=== PATIENT | female | born 1955 | race Caucasian/White ===

== ENCOUNTER 2018-05-30 15:39 | Inpatient (IN) ==
[2018-05-30] MEDS ORDERED: HYDROmorphone 2 MG/ML VIAL IV PRN ×2 (15:54→17:33)
--- NOTE | 2018-05-30 16:28 | XRay Report ---
HISTORY: Preop for hip fracture FINDINGS: The lungs are clear. The heart size and pulmonary vasculature are normal. The mediastinum, familia and pleura are normal. There is a loop of colon interposed between the diaphragm and right lobe of liver. This is an incidental finding. IMPRESSION: Normal chest Interpreted and Authenticated by: Nam Wilson 05/30/18
--- NOTE | 2018-05-30 17:26 | Internal Med History&Physical ---
Medical - H&P: HPI Patient information: Note initiated : 05/30/18 at 5:19 pm Service Date, if different from initiated Date: [] Patient: Hallie Krishnamurthy a 63 y/o F admitted on for Hip fracture. Chief Complaint: [] History of present illness: Ms. Krishnamurthy is a 63 year old F with h/o parkinsons plus syndrome presents to the ER today from outside facility for evaluation of hip fracture The patient fell down on monday, mechanical fall, no head injury reported. The patient usually ambulates with support, and was able to ambulate after fall, thinks she knew she had something broken but did not go to hospital, thought it would get better. The pain progressively got worse over the next 2 days and the patient eventually decided to go to the ER The patient denies any other complaints, her main issue is poor mobility with parkinsons plus syndrome, she needs help with basic care. Very poor functional status. She denies any h/o DM, CVA, TIA, CAD, CHF, CKD or DM, She lives with a partner who helps her with ADL, pt parents were in the ER with her. In the ER the patient was hemodynamically stable, CXR is negative. Labs unremarkable ECG normal sinus, poor voltage, no previous ekg to compare I reviewed echo done in the past 2014 which was normal. She was also evaluated with Carotid Doppler/ lower extremity Doppler, which showed mild atherosclerotic disease [id number] All systems: reviewed and no additional remarkable complaints except as stated ( as per HPI rest negative.) Medical - H&P: PMH Medical history: Parkinson's plus with cortical basilar degeneration; advancing -causing blurry vision, rem sleep behavior disorder -F/B Dr. Sanchez, dx 2016 -[facility], Dr. He -Dr. Dubois, on clonipine for this Chronic leg and feet pain Venous insufficiency Fibromylagia OA, generalized Breast cancer - dx 2007, treated with surgery Chronic cough - allergic rhinnitis, asthma r/o by G[place]is, laryngospasms GERD HTN Pituitary adenoma HLD - intolerant of statins colon polps - q 5 years with [facility] chronic low back pain, spinal stenosis Surgical history: CARMELO with BSO - uterine fibroids Cholecystectomy Left masectomy 2007 CTS bilateral Bilateral shoulders scoped Left knee replacement Right knee scopes x 7 to 8 Left nerve entrapment, with relocaton of the nerve Tonsillectomy Family history: reviewed and not pertinent Social history: Ex smoker, no etoh, or recreational drugs poor functional status, lives with partner Medical - H&P: Meds Home Medications Medication Instructions Recorded Confirmed Type Albuterol Sulfate [Ventolin] 1 puff INH Q4HP PRN 05/30/18 05/30/18 History Aspirin [Lucinda Chewable Aspirin] 81 mg PO DAILY 05/30/18 05/30/18 History Bisacodyl [Gentle Laxative] 5 mg PO DAILY 05/30/18 05/30/18 History Docusate Sodium [Colace] 100 mg PO DAILY 05/30/18 05/30/18 History Etodolac [Lodine] 400 mg PO BID 05/30/18 05/30/18 History Furosemide [Lasix] 40 mg PO DAILY 05/30/18 05/30/18 History Gabapentin 600 mg PO DAILY 05/30/18 05/30/18 History Loratadine/Pseudoephedrine 1 each PO DAILY 05/30/18 05/30/18 History [Claritin-D 12 Hour Tablet] Multivitamin [One Daily] 1 each PO DAILY 05/30/18 05/30/18 History Nystatin Crm 1 dose TOPICAL TID 05/30/18 05/30/18 History Omeprazole [PriLOSEC] 20 mg PO DAILY 05/30/18 05/30/18 History Ondansetron HCl [Zofran ODT] 4 mg SL Q8HP PRN 05/30/18 05/30/18 History Venlafaxine HCl [Effexor Xr] 37.5 mg PO DAILY 05/30/18 05/30/18 History Vit A,C & E/Lutein/Minerals 1 tab PO DAILY 05/30/18 05/30/18 History [Ocuvite] tiZANidine HCL [Zanaflex] 4 mg PO HS 05/30/18 05/30/18 History Allergies Allergy/AdvReac Type Severity Reaction Status Date / Time Penicillins Allergy Intermediate Hives Verified 05/30/18 15:40 cefazolin [CEFAZOLIN] AdvReac Intermediate Nausea/Vomi Verified 05/30/18 15:40 ting ADHESIVE TAPE Allergy Unknown Rash Uncoded 02/06/15 03:30 Medical - H&P: Exam - Constitutional Vitals: Temp Pulse Resp BP Pulse Ox 99.1 F H 94 H 16 155/77 95 05/30/18 15:41 05/30/18 15:41 05/30/18 15:41 05/30/18 15:41 05/30/18 15:41 Exam: GENERAL: The patient is a well-developed, well-nourished in no apparent distress. Is alert and oriented x3. VITAL SIGNS: Reviewed and as noted elsewhere. HEENT: Head is normocephalic and atraumatic. Extraocular muscles are intact. Pupils are equal, round, and reactive to light. Nares appeared normal. Mouth appears any without lesions. Mucous membranes are dry NECK: Normal to inspection, No lymphadenopathy or thyromegaly. LUNGS: Air entry equal on both sides, no wheezing, crackles or rhonchi noted. No accessory muscles of respiration HEART: Regular rate and rhythm normal, S1 and S2 heard, no Gallop, S3 or Rub Noted, No Gross murmur heard. ABDOMEN: Soft, nontender, and nondistended. Positive bowel sounds. No hepatosplenomegaly was noted. EXTREMITIES: No cyanosis, clubbing, rash, lesions or edema. NEUROLOGIC: Cranial nerves II through XII are grossly intact. Motor and Sensory System Grossly Intact, masked facies, flexed upper extremity, increased tone in all joints. mild parkinsonian tremor noted. PSYCHIATRIC: Normal affect, Normal Mood. Appropriate Behavior. SKIN: No ulceration or wounds noted, No jaundice, No rash noted. Medical - H&P: Reslt - Labs Labs: labs reviewed WBC 7.3 Hb 13.4 Plat 167 Na 141, K 3.8, BIcarb 26, Creat 0.79, glucose 97 ua mild leuk esterase positive, 5-10 wbc rest neg Medical - H&P: A/P - Narrative A/P Narrative: A/P Hip fracture- Management per ortho, anticipate surgery in AM. Pre op risk assessment- Patient has RCRI of 0, moderate risk from cardiovascular stand point (age/ poor functional status) , but high risk perioperatively given age, advanced neurological disease as well as high risk for perioperative delirium. This was reviewed with the patient and family. No reversible factors noted. Parkinson disease, plus- Continue Levodopa carbidopa in the alan op period Fibromyalgia- continue Effexor HTN/HLD- Continue home medications once verified DVT hep sq Diet regular OT/PT/ST
[2018-05-30] MEDS ORDERED: oxyCODONE HCL 5 MG TABLET PO PRN (17:33)
[2018-05-30] MEDS ORDERED: ONDANSETRON 4 MG/2 ML VIAL IV PRN (17:33)
[2018-05-30] MEDS ORDERED: ACETAMINOPHEN 325 MG TABLET PO PRN (17:33)
--- NOTE | 2018-05-30 17:34 | Emergency Department Note ---
Lower Extremity Injury HPI - General Chief Complaint: Extremity Injury, Lower Stated Complaint: Hip fracture Time Seen by Provider: 05/30/18 15:43 Source: EMS Mode of arrival: EMS - History of Present Illness HPI Narrative: This patient fell on Monday and sustained a fracture to her left hip which was impacted. She was able to walk on it slightly for a day or so but it has become more painful and she went to the ER and [facility] and had x-rays that showed an impacted fracture. Patient is reasonably comfortable with this time. She has had some lab work done and [facility]. Dr. Valentine was consulted and Dr. Shrestha. - Related Data Home Medications Medication Instructions Recorded Confirmed Albuterol Sulfate [Ventolin] 1 puff INH Q4HP PRN 05/30/18 05/30/18 Aspirin [Lucinda Chewable Aspirin] 81 mg PO DAILY 05/30/18 05/30/18 Bisacodyl [Gentle Laxative] 5 mg PO DAILY 05/30/18 05/30/18 Docusate Sodium [Colace] 100 mg PO DAILY 05/30/18 05/30/18 Etodolac [Lodine] 400 mg PO BID 05/30/18 05/30/18 Furosemide [Lasix] 40 mg PO DAILY 05/30/18 05/30/18 Gabapentin 600 mg PO DAILY 05/30/18 05/30/18 Loratadine/Pseudoephedrine 1 each PO DAILY 05/30/18 05/30/18 [Claritin-D 12 Hour Tablet] Multivitamin [One Daily] 1 each PO DAILY 05/30/18 05/30/18 Nystatin Crm 1 dose TOPICAL TID 05/30/18 05/30/18 Omeprazole [PriLOSEC] 20 mg PO DAILY 05/30/18 05/30/18 Ondansetron HCl [Zofran ODT] 4 mg SL Q8HP PRN 05/30/18 05/30/18 Venlafaxine HCl [Effexor Xr] 37.5 mg PO DAILY 05/30/18 05/30/18 Vit A,C & E/Lutein/Minerals 1 tab PO DAILY 05/30/18 05/30/18 [Ocuvite] tiZANidine HCL [Zanaflex] 4 mg PO HS 05/30/18 05/30/18 Allergies Allergy/AdvReac Type Severity Reaction Status Date / Time Penicillins Allergy Intermediate Hives Verified 05/30/18 15:40 cefazolin [CEFAZOLIN] AdvReac Intermediate Nausea/Vomi Verified 05/30/18 15:40 ting ADHESIVE TAPE Allergy Unknown Rash Uncoded 02/06/15 03:30 Review of Systems All systems ED: reviewed and negative except as stated. Past Medical History - Past Medical History [facility] Narrative: This patient has some sort of a cortical cerebral degeneration syndrome. - Social History smoking status: Former smoker Physical Exam Limitations: no limitations General appearance: alert Head: atraumatic Eye: Present: normal appearance ENT: normal exam Neck: Present: normal inspection Chest: Present: normal inspection Respiratory: Present: normal lung sounds bilaterally Cardiovascular: Present: regular rate, normal rhythm, normal heart sounds Abdominal: Present: soft. Absent: distention, tenderness Neurological: Present: alert Psychiatric: Present: normal affect Skin: Present: warm, dry, intact Course Vital Signs Temperature 99.1 F H 05/30/18 15:41 Pulse Rate 94 H 05/30/18 15:41 Respiratory Rate 16 05/30/18 15:41 Blood Pressure 155/77 05/30/18 15:41 Pulse Oximetry (%) 95 05/30/18 15:41 Temperature 99.1 F H 05/30/18 15:41 Pulse Rate 92 H 05/30/18 17:20 Respiratory Rate 16 05/30/18 15:41 Blood Pressure 163/83 05/30/18 17:01 Pulse Oximetry (%) 96 05/30/18 17:20 Extremity Injury, Lower - Medical Records Medical records reviewed: Yes I reviewed the patient's medical records. Disposition Pt seen by PURCHASING EXPEDITOR/PA only: No Clinical Impression: Fracture of hip Disposition: Xfer As Inpt ([facility]) Condition: Good Referrals: Fallon Benavidez MD [Primary Care Provider] - Time of Disposition: 17:34
[2018-05-30] MEDS: DEXTROSE 5%-1/2NS 1,000 ML IV SCH (18:00)
[2018-05-30] MEDS: HEPARIN 5,000 UNIT/ML VIAL SQ SCH (20:09)
[2018-05-30] MEDS: CARBIDOPA/LEVODOPA 25/100 TABLET PO SCH ×2 (20:09→20:13)
[2018-05-30] MEDS: 0.9 % SODIUM CHLORIDE 10 ML SYRINGE IV SCH (20:11)
[2018-05-30] MEDS: IPRATROPIUM/ALBUTEROL 3 ML AMPUL.NEB NEB SCH (20:15)
[2018-05-30] MEDS ORDERED: SENNOSIDES 1 TABLET PO SCH (21:00)
[2018-05-30] MEDS ORDERED: TIZANIDINE HCL 4 MG PO SCH (21:00)
[2018-05-30] MEDS ORDERED: tiZANidine 4 MG TABLET PO SCH (21:00)
[2018-05-30] MEDS ORDERED: CYCLOBENZAPRINE 10 MG TABLET PO ONE (21:27)
[2018-05-30] MEDS: cefTRIAXone 1 GM VIAL IV SCH (22:43)
[2018-05-30] MEDS: VENLAFAXINE 37.5 MG TAB.ER.24H PO SCH (23:07)
[2018-05-30] MEDS ORDERED: GABAPENTIN 300 MG CAPSULE ONE (23:08)
[2018-05-31] MEDS: IPRATROPIUM/ALBUTEROL 3 ML AMPUL.NEB NEB SCH ×4 (01:19→19:10)
[2018-05-31 05:04] LABS: Appearance,Urine CLEAR; Bilirubin,Urine NEG (NEG); Color,Urine YELLOW; Glucose,Urine (UA) NEGATIVE (NEG); Leukocyte Esterase,Urine NEG /uL (NEG); Protein,Urine NEG (NEG); Urine Blood NEG mg/dL (<0.03)
[2018-05-31] MEDS: 0.9 % SODIUM CHLORIDE 10 ML SYRINGE IV SCH ×3 (05:04→20:48)
[2018-05-31] MEDS: DEXTROSE 5%-1/2NS 1,000 ML IV SCH (06:21)
--- NOTE | 2018-05-31 06:43 | Orthopedic Consult Note ---
History of Present Illness - [facility] Patient information: Note initiated : 05/31/18 at 6:37 am Service Date, if different from initiated Date: [] Patient: Hallie Krishnamurthy 63 y/o F admitted on 05/30/18 for Hip fracture. Chief Complaint: [left hip fracture] Consult date: 05/31/18 Consult reason: fracture History of present illness: Patient presented to [facility] yesterday where x-rays revealed a left hip fracture. She was transferred to [facility] for further care and evaluation. The patient was admitted by the hospitalist yesterday for overall medical management. I spoke with the patient and her partner this morning at bedside. She states that on Monday she fell and landed on that hip and then proceeded to walk on it for two days. She has a past medical history significant for cortical basilar degeneration, Parkinsons, breast cancer, GERD, HTN, Pituitary adenoma, colon polyps, spinal stenosis. She routinely ambulates with assistance or assistive device. Both parties deny head trauma at the time of the fall. This morning she reports moderate pain in the left hip. She denies chest pain, SOB, numbness, tingling, calf pain. She also denies PMH of CVA, TIA , RI, DM, or CKD. Cardiovascular health was examined by Dr. Shrestha at admission. She has had multiple surgeries in the past with no anesthetic complications. She's a former tobacco user and denies ETOH or recreational drug use. She was given a dose of Heparin last night for some reason but does not routinely take blood thinners. Review of Systems All systems PM: reviewed and no additional remarkable complaints except as stated Musculoskeletal: abnormal gait, back pain, deformity, limited range of motion, neck pain Medications and Allergies Home Medications Medication Instructions Recorded Confirmed Type Albuterol Sulfate [Ventolin] 1 puff INH Q4HP PRN 05/30/18 05/30/18 History Aspirin [Lucinda Chewable Aspirin] 81 mg PO DAILY 05/30/18 05/30/18 History Bisacodyl [Gentle Laxative] 5 mg PO DAILY 05/30/18 05/30/18 History Docusate Sodium [Colace] 100 mg PO DAILY 05/30/18 05/30/18 History Etodolac [Lodine] 400 mg PO BID 05/30/18 05/30/18 History Furosemide [Lasix] 40 mg PO DAILY 05/30/18 05/30/18 History Gabapentin 600 mg PO DAILY 05/30/18 05/30/18 History Loratadine/Pseudoephedrine 1 each PO DAILY 05/30/18 05/30/18 History [Claritin-D 12 Hour Tablet] Multivitamin [One Daily] 1 each PO DAILY 05/30/18 05/30/18 History Nystatin Crm 1 dose TOPICAL TID 05/30/18 05/30/18 History Omeprazole [PriLOSEC] 20 mg PO DAILY 05/30/18 05/30/18 History Venlafaxine HCl [Effexor Xr] 37.5 mg PO DAILY 05/30/18 05/30/18 History Vit A,C & E/Lutein/Minerals 1 tab PO DAILY 05/30/18 05/30/18 History [Ocuvite] tiZANidine HCL [Zanaflex] 4 mg PO HS 05/30/18 05/30/18 History Allergies Allergy/AdvReac Type Severity Reaction Status Date / Time Penicillins Allergy Intermediate Hives Verified 05/30/18 15:40 cefazolin [CEFAZOLIN] AdvReac Severe Nausea/Vomi Verified 05/30/18 23:33 ting ADHESIVE TAPE Allergy Severe Rash Uncoded 05/30/18 23:33 Physical Examination - Hip left Gait: other (non weight bearing) Tenderness with palpation: lateral, greater trochanter Pain with motion: internal rotation and hip flexion, internal rotation and hip extension, external rotation and hip flexion, external rotation and hip extension, other Assessment and Plan (1) Closed left hip fracture Mildly displaced fracture of left femoral neck: -after speaking to patient and partner regarding diagnosis and reviewing the images with Dr. Hansen, the recommended course of action is a left emma hip arthroplasty for optimal orthopedic management. Hip pinning is an option however the head is displaced and the likelihood of femoral head necrosis is a great risk as well as the patient's unsteady gait. We discussed the procedure at length including the risks and benefits associated with surgery including but not limited to the risks of anesthesia, the risk of infection, altered gait , pain. The patient understands these risks and wishes to proceed with surgery which is scheduled for this morning. -pain control -NPO Status: Acute Exam Vital signs: Temp Pulse Resp BP Pulse Ox 99.3 F H 78 20 122/72 90 09/27/18 03:30 05/31/18 03:30 05/31/18 03:30 05/31/18 03:30 05/31/18 03:30 Constitutional: well developed, well nourished, no acute distress Head: normocephalic, atraumatic Neck: trachea midline, nuchal rigidity, other (unable to fully extend neck) Respiratory: no intercostal retractions or use of accessory muscles, clear to auscultation bilaterally Cardiovascular: regular rate & rhythm with no murmurs, rubs or gallops, no thrill or palpable murmurs Neurologic: other (diffuse muscular weakness, slow gait and slow speech) Psychiatric: oriented to person, place and time Additional findings: DP/PT pulses 2+ bilaterally. LLE compartments soft and nontender. Capillary refill < 3 seconds
[2018-05-31 07:05] LABS: Basophils # (Auto) 0 K/mcL (0.0-0.3); Basophils % (Auto) 0.3 % (0.0-2.0); Eosinophils # (Auto) 0.2 K/mcL (0.0-0.7); Eosinophils % (Auto) 2.3 % (0.0-7.0); Lymphocytes % (Auto) 28.7 % (15.5-49.0); Mean Cell Volume 91.5 fL (80.0-100.0); Mean Corpuscular HGB Conc 34.2 g/dL (31.0-36.0); Mean Corpuscular Hemoglobin 31.3 pg (26.0-34.0); Monocytes # (Auto) 0.7 K/mcL (0.1-0.9); Monocytes % (Auto) 10.7 % (1.0-12.0); Platelet Count 143 K/mcL (140-440); RBC 3.94 M/mcL (4.00-5.20); Red Cell Distribution Width 11.9 % (11.5-14.5)
[2018-05-31] MEDS ORDERED: OMEPRAZOLE 20 MG CAPSULE PO SCH (07:30)
[2018-05-31 07:31] LABS: ALT/SGPT 8 U/l (0-40); Albumin 3.4 gm/dL (3.2-5.2); Albumin/Globulin Ratio 1.4 (1.0-2.3); Alkaline Phosphatase 55 U/L (39-117); Bilirubin,Direct < 0.2 mg/dL (0.0-0.3); Blood Urea Nitrogen 10 mg/dl (8-23); Gamma Glutamyl Transpeptidase 11 U/L (5-36); Uric Acid 2.1 mg/dL (2.5-8.0)
--- NOTE | 2018-05-31 07:33 | Consultation ---
DATE OF CONSULTATION: 05/30/2018 HISTORY OF PRESENT ILLNESS: This is a very pleasant 63-year-old who is alert and cooperative, was seen in [facility] and diagnosed with a femoral neck fracture of the left hip. She does have some Parkinson's or advanced Parkinson's type symptoms and she still ambulates but short distance. Mentally she is alert. She asked lots of questions. She does note she had a fall. She broke this 2 days ago and actually walked on the hip a little bit. These x-rays confirmed mild to moderate displacement of the femoral neck. The patient otherwise has been progressively getting weaker and worse because of the Parkinson's, but she is still doing quite well. PAST MEDICAL HISTORY: Parkinson's like syndrome or neurologic syndrome that has limited her ability to get around. MEDICATIONS: I did not have or review with her. PHYSICAL EXAMINATION: GENERAL: A very pleasant 63-year-old female with all signs of Parkinson's. LUNGS: She does have some slight wheezing with breathing, but no shortness of breath. She has a regular rate. ABDOMEN: Soft, nontender. EXTREMITIES: Her left leg has excellent pulses, both dorsal and plantar. She is rigid consistent with Parkinson's. She has good capillary refill, however. There is no significant rotational deformity of the left leg on inspection, no open wounds around the hip. RADIOLOGIC STUDIES: X-rays from [facility] demonstrate a femoral neck fracture with slight displacement. LABORATORY DATA: Hematocrit 40, UA fairly clean with 5-10 white blood cells that may need to be addressed. IMPRESSION: Femoral neck fracture with neurologic, or Parkinson's type symptoms. PLAN: They have requested Dr. Hansen-he has treated them in the past and I have notified Dr. Hansen of this, and he is willing to do this tomorrow. She will be made NPO at midnight. The hospitalist will be consulted for clearance. RBH:brandi Job ID: [id number] Doc ID: [id number] Kunal Yang MD
[2018-05-31] MEDS ORDERED: DOCUSATE SODIUM 100 MG CAPSULE PO SCH ×2 (09:00→21:00)
[2018-05-31] MEDS ORDERED: ASPIRIN 325 MG ENTERIC COATED TABLET PO SCH (09:00)
[2018-05-31] MEDS ORDERED: GABAPENTIN 300 MG CAPSULE PO SCH ×2 (09:00→21:00)
[2018-05-31] MEDS: VENLAFAXINE 37.5 MG TAB.ER.24H PO SCH ×2 (09:19→20:48)
[2018-05-31] MEDS: HEPARIN 5,000 UNIT/ML VIAL SQ SCH ×2 (09:19→20:46)
[2018-05-31] MEDS: CARBIDOPA/LEVODOPA 25/100 TABLET PO SCH ×2 (09:20→20:48)
[2018-05-31] MEDS: cefTRIAXone 1 GM VIAL IV SCH (09:45)
[2018-05-31] MEDS ORDERED: PROPOFOL 200 MG/20 ML VIAL IV ONE (11:00)
[2018-05-31] MEDS ORDERED: MIDAZOLAM 5 MG/5 ML VIAL IV ONE (11:00)
[2018-05-31] MEDS ORDERED: LIDOCAINE HCL/PF 100 MG/5 ML SYRINGE IV ONE (11:00)
[2018-05-31] MEDS ORDERED: ONDANSETRON 4 MG/2 ML VIAL IV ONE (11:00)
[2018-05-31] MEDS ORDERED: fentaNYL 100 MCG/2 ML VIAL IV ONE (11:00)
[2018-05-31] MEDS ORDERED: KETAMINE 100 MG/ML ML IV ONE (11:00)
[2018-05-31] MEDS ORDERED: TRANEXAMIC ACID 1,000 MG/10 ML VIAL IV ONE ×2 (11:00→12:09)
[2018-05-31] MEDS ORDERED: DEXAMETHASONE 10 MG/ML VIAL IV ONE (11:00)
[2018-05-31] MEDS ORDERED: GENTAMICIN SULFATE 800 MG/20 ML VIAL IR ONE (11:48)
[2018-05-31] MEDS ORDERED: NALOXONE HCL 0.4 MG/ML VIAL IV PRN (11:49)
[2018-05-31] MEDS ORDERED: IPRATROPIUM/ALBUTEROL 3 ML AMPUL.NEB NEB PRN (11:49)
[2018-05-31] MEDS ORDERED: ACETAMINOPHEN 1,000 MG/100 ML BOTTLE IV ONE (11:49)
[2018-05-31] MEDS ORDERED: LACTATED RINGERS 250 ML IV PRN (11:49)
[2018-05-31] MEDS ORDERED: diphenhydrAMINE 50 MG/ML VIAL IV PRN (11:49)
[2018-05-31] MEDS ORDERED: FLUMAZENIL 0.1 MG/ML ML IV PRN (11:49)
[2018-05-31] MEDS ORDERED: PROMETHAZINE 25 MG/ML VIAL IV PRN (11:49)
[2018-05-31] MEDS ORDERED: BENZOCAINE/MENTHOL 1 LOZENGE PO PRN ×3 (11:49→14:52)
[2018-05-31] MEDS ORDERED: ONDANSETRON 4 MG/2 ML VIAL IV PRN ×2 (11:49→14:52)
[2018-05-31] MEDS ORDERED: MEPERIDINE 25 MG/ML SYRINGE IV PRN (11:49)
[2018-05-31] MEDS ORDERED: fentaNYL 100 MCG/2 ML VIAL IV PRN (11:49)
[2018-05-31] MEDS ORDERED: LACTATED RINGERS 1,000 ML IV SCH (12:00)
[2018-05-31] MEDS ORDERED: ONDANSETRON ODT 4 MG TABLET SL PRN ×2 (12:09→14:52)
[2018-05-31] MEDS ORDERED: HYDROcodone/APAP 10/325MG TABLET PO PRN ×2 (12:09→14:52)
[2018-05-31] MEDS ORDERED: METHOCARBAMOL 750 MG TABLET PO PRN ×2 (12:09→14:52)
[2018-05-31] MEDS ORDERED: FLEETS ADULT ENEMA PR PRN ×2 (12:09→14:52)
[2018-05-31] MEDS ORDERED: MAGNESIUM HYDROXIDE 30 ML ORAL.SUSP PO PRN ×2 (12:09→14:52)
[2018-05-31] MEDS ORDERED: BISACODYL 10 MG SUPP.RECT PR PRN ×2 (12:09→14:52)
[2018-05-31] MEDS ORDERED: POLYETHYLENE GLYCOL 3350 17 GM PACKET PO PRN ×2 (12:09→14:52)
--- NOTE | 2018-05-31 12:09 | Brief Operative Note ---
Date of procedure: 05/31/18 Pre-op diagnosis: left hip femoral neck fracture Post-op diagnosis: same Procedure: left hip hemiarthroplasty Grafts/Implants: Yes Anesthesia: spinal Complications: none Surgeon: Liang Hansen Collision Technician: Edith Lyles Estimated blood loss (cc): 150 Specimens Removed/Pathology: none sent Condition: stable Disposition: PACU
[2018-05-31] MEDS ORDERED: 0.9 % SODIUM CHLORIDE 1,000 ML IV SCH ×2 (12:15→14:52)
--- NOTE | 2018-05-31 12:20 | Operative Note ---
DATE OF OPERATION: 05/31/2018 PREOPERATIVE DIAGNOSES: 1. Femoral neck fracture, left hip. 2. Transcervical valgus impaction. POSTOPERATIVE DIAGNOSES: 1. Femoral neck fracture, left hip. 2. Transcervical valgus impaction. PROCEDURE PERFORMED: Left hip hemiarthroplasty. SURGEON: Liang Hansen M.D. EMBLEM MAKER SURGEON: Edith Lyles PA-C. ANESTHESIA: Spinal with LMA assist. ESTIMATED BLOOD LOSS: 200 mL. COMPLICATIONS: None noted. SPECIMENS REMOVED: None. DRAINS: None. IMPLANTS: DePuy Treasure femoral stem size 7, basic pressfit; DePuy Modular [place] fractured head hip ball 45 mm diameter; DePuy Modular [place] tapered spacer +0. INDICATIONS: The patient fell and was unable to ambulate. Radiographs have confirmed a displaced femoral neck fracture. The patient was admitted to the hospital and underwent medical clearance. After a long discussion about treatment options, the patient elected to proceed with a hip hemiarthroplasty. The risks and benefits were discussed with the patient in detail including, but not limited to, the risks of anesthesia, problems with the heart or lungs related to anesthesia, infection, compromise or injury to the nerves and blood vessels, deep venous thrombosis, pulmonary embolism, pneumonia, continued pain after surgery, worsening pain or symptoms after surgery, swelling, loss of motion, instability, leg length discrepancy, and need for repeat surgery. DESCRIPTION OF PROCEDURE: The patient was seen in pre-anesthesia waiting room where all questions were answered and the correct side and site were identified and marked. The patient was then brought to the operating room and administered the anesthetic and given preoperative antibiotics. A time-out was then called. The patient was placed in the lateral decubitus position with all prominences well padded using the Sotero frame and the extremity was prepped and draped in the usual sterile fashion. A standard posterior approach was made. We dissected through the skin and subcutaneous tissue to the deep fascia. The deep fascia was split in line with the incision and a Charnley retractor was placed. We exposed, tagged, and incised the short external rotators and piriformis tendon and retracted them posteriorly to help protect the sciatic nerve which was palpated throughout the case. We then performed a T-capsulotomy and tagged the capsule edges. The hip was then dislocated and a femoral neck osteotomy was performed to the presurgical templated level, off the lesser trochanter. The head was removed and sized. The acetabulum was inspected and did not have a significant degree of osteoarthritis. All bone and fracture debris was removed. Our attention was now turned to the femur. We placed retractors for visualization, internally rotated the femur, and established intramedullary access. We incrementally broached our stem to a stable platform medial, lateral, and rotationally with the appropriate version. We then performed a calcar reaming off the broach. Trials were then placed and optimized for leg length, soft tissue tension, and stability. Best stability, length, and offset characteristics were obtained with these sizes. We closed the fascia with a combination of #2 Stratafix and #0 Vicryl. We closed the subcutaneous tissue and skin in layers out to Dermabond on the skin. A sterile pressure dressing and abduction wedge was applied. All needle and sponge counts were correct. The patient was transferred to the recovery room in stable condition. KANWAL:bella Job ID: [id number] Doc ID: [id number] Kamron Hansen MD
--- NOTE | 2018-05-31 12:56 | XRay Report ---
HISTORY: Postop hip replacement for fractured hip FINDINGS: Patient has well-positioned left hip prosthesis. There is no fracture or abnormal soft tissue calcification around the joint. There are calcified plaques in the femoral arteries. IMPRESSION: Well-positioned left hip prosthesis Interpreted and Authenticated by: Nam Wilson 05/31/18
[2018-05-31] MEDS ORDERED: DEXTROSE 5%-1/2NS 1,000 ML IV SCH (14:52)
--- NOTE | 2018-05-31 15:23 | Internal Med Progress Note ---
Medical - PN: Subj Patient information: Note initiated : 05/31/18 at 3:21 pm Service Date, if different from initiated Date: [] Patient: Hallie Krishnamurthy a 63 y/o F admitted on 05/30/18 for Hip fracture. Chief Complaint: [] Interval history: Ms. Krishnamurthy is a 63 year old F with h/o parkinsons plus syndrome presents to the ER today from outside facility for evaluation of hip fracture The patient fell down on monday, mechanical fall, no head injury reported. The patient usually ambulates with support, and was able to ambulate after fall, thinks she knew she had something broken but did not go to hospital, thought it would get better. The pain progressively got worse over the next 2 days and the patient eventually decided to go to the ER The patient denies any other complaints, her main issue is poor mobility with parkinsons plus syndrome, she needs help with basic care. Very poor functional status. She denies any h/o DM, CVA, TIA, CAD, CHF, CKD or DM, She lives with a partner who helps her with ADL, pt parents were in the ER with her. In the ER the patient was hemodynamically stable, CXR is negative. Labs unremarkable ECG normal sinus, poor voltage, no previous ekg to compare I reviewed echo done in the past 2014 which was normal. She was also evaluated with Carotid Doppler/ lower extremity Doppler, which showed mild atherosclerotic disease [id number] 9/27 Patient seen examined drowsy, post op, partner by bed side, Pertinent ROS: pt drowsy. - Constitutional Vitals: Vital Signs Temp Pulse Resp BP Pulse Ox 99.4 F H 80 20 142/63 90 05/31/18 13:26 05/31/18 13:26 05/31/18 13:26 05/31/18 13:26 05/31/18 13:26 Period Temp Pulse Resp BP Sys/Daniel Pulse Ox Last 24 Hr 98.0 F-100.5 F 78-98 - 98-163/63-85 89-98 Intake and Output 05/31/18 05/31/18 05/31/18 05:59 13:59 21:59 Intake Total 0 / 0 2900 / 2900 Output Total 600 / 600 450 / 450 Balance -600 / -600 2450 / 2450 Intake & Output: Intake & Output 09/05/31/18 05/31/18 05:59 13:59 21:59 Intake Total 0 / 0 2900 / 2900 Output Total 600 / 600 450 / 450 Balance -600 / -600 2450 / 2450 Intake: IV 1100 / 1100 Dextrose 5%-1/2Ns IV Solution 1 1000 / 1000 ,000 ml @ 75 mls/hr IV .[id number] [facility] Rx#:[id number] Oral 0 / 0 IV - Manual Only 1800 / 1800 Output: Urine Catheter Amount 600 / 600 250 / 250 Estimated Blood Loss 200 / 200 Other: Urine Appearance Clear Clear Uretheral (Kendrick) Clear Urine Color Bright Yellow Straw Uretheral (Kendrick) Dark Yellow Exam: Constitutional; Afebrile, cooperative, drowsy, not in distress. Respiratory system: Air Entry equal on both sides, No crackles or wheezing, no rhonchi. CVS- Rate rhythm regular, S1,S2 heard, no gallop, no rub. Abdomen- Soft nontender abdomen, no organomegaly, no tenderness, no guarding or rigidity, VP [employer]- AOOx1, moving all extremities, no gross focal deficit noted. Medical - PN: Obj Da - Labs CBC & Chem 7: 05/31/18 05:48 05/31/18 05:48 Labs: Abnormal Lab Results 05/31/18 05/31/18 05/31/18 05:48 05:48 03:30 RBC 3.94 L Glucose 116 H Uric Acid 2.1 L Urine Urobilinogen 2.0 A Meds: Medications Acetaminophen (Tylenol) 650 mg PO Q6HP PRN PRN Reason: PAIN/FEVER > 101 Hydrocodone Bitart/Acetaminophen ([place] 10/325mg) 0 tab PO Q4HP PRN PRN Reason: PAIN LEVEL 3-6 Albuterol/Ipratropium (Duoneb) 3 ml NEB Q6HRT [facility] Aspirin (Ecotrin) 325 mg PO DAILY [facility] Bisacodyl (Dulcolax) 10 mg [place] Q2-3DAYS PRN PRN Reason: Constipation Carbidopa/Levodopa (Sinemet 25/100) 1 tab PO BID [facility] Docusate Sodium (Colace) 100 mg PO BID [facility] Gabapentin (Neurontin) 600 mg PO HS [facility] Heparin Sodium (Porcine) (Heparin) 5,000 unit SQ Q12 [facility] Clindamycin Phosphate 600 mg/ (Dextrose) 54 mls @ 100 mls/hr IV Q8H [facility] Stop: 06/01/18 02:03 Dextrose/Sodium Chloride (Dextrose 5%-1/2ns Iv Solution) 1,000 mls @ 75 mls/hr IV .[id number] [facility] Stop: 05/31/18 20:12 Sodium Chloride (Sodium Chloride 0.9%) 1,000 mls @ 125 mls/hr IV .Q8H [facility] Magnesium Hydroxide (Milk Of Magnesia) 30 ml PO BIDP PRN PRN Reason: Constipation Methocarbamol (Robaxin) 750 mg PO Q6HP PRN PRN Reason: Muscle Spasm Morphine Sulfate (Morphine) 0 mg IV Q1HP PRN PRN Reason: PAIN LEVEL > 6 Omeprazole (Prilosec) 20 mg PO QAMAC [facility] Ondansetron HCl (Zofran) 4 mg IV Q6HP PRN PRN Reason: Nausea And Vomiting Ondansetron HCl (Zofran Odt) 4 mg SL Q4HP PRN PRN Reason: Nausea And Vomiting Polyethylene Glycol (Miralax) 17 gm PO DAILYP PRN PRN Reason: Constipation Senna (Senokot) 2 tab PO HS [facility] Sodium Biphosphate/Sodium Phosphate (Fleets Adult) 1 dose [place] Q3-4DAYS PRN PRN Reason: Constipation Sodium Chloride (Saline Flush) 10 ml IV Q8 [facility] Throat Lozenges (Cepacol) 1 lozenge PO PRN PRN PRN Reason: Sore Throat Tizanidine HCl (Zanaflex) 4 mg PO HS [facility] Venlafaxine HCl (Effexor Xr) 37.5 mg PO HS [facility] Medical - PN: A/P - Time Spent With Patient Total time spent is greater than 50% in coordination of care (as documented) at patient's floor/unit and/or counseling patient: - Narrative A/P Narrative: A/P Hip fracture- Management per ortho, s/p surgery Parkinson disease, plus- Continue Levodopa carbidopa , given her neurological status, high risk for post op delirum Fibromyalgia- continue Effexor HTN/HLD- Continue home medications once verified DVT hep sq Diet regular OT/PT/ST Medical - PN: Qual - Stroke Symptom Onset Unknown: No - VTE Deep Vein Thrombosis/Pulmonary Embolism Present on Admission: No
[2018-05-31] MEDS ORDERED: CLINDAMYCIN 600 MG in DEXTROSE 5% IN WATER 50 ML IV SCH (17:30)
[2018-05-31] MEDS: CLINDAMYCIN 600 MG in DEXTROSE 5% IN WATER 50 ML IV SCH (17:41)
[2018-05-31] MEDS: GABAPENTIN 300 MG CAPSULE PO SCH (20:46)
[2018-05-31] MEDS: DOCUSATE SODIUM 100 MG CAPSULE PO SCH (20:47)
[2018-05-31] MEDS: tiZANidine 4 MG TABLET PO SCH (20:47)
[2018-05-31] MEDS: SENNOSIDES 1 TABLET PO SCH (20:47)
[2018-05-31] MEDS ORDERED: SENNOSIDES 1 TABLET PO SCH (21:00)
[2018-05-31] MEDS ORDERED: VENLAFAXINE 37.5 MG TAB.ER.24H PO SCH (21:00)
[2018-06-01] MEDS: CLINDAMYCIN 600 MG in DEXTROSE 5% IN WATER 50 ML IV SCH (01:13)
[2018-06-01] MEDS: IPRATROPIUM/ALBUTEROL 3 ML AMPUL.NEB NEB SCH ×4 (01:14→19:49)
--- NOTE | 2018-06-01 06:43 | Orthopedic Progress Note ---
Subjective Patient information: Note initiated : 06/01/18 at 6:40 am Service Date, if different from initiated Date: [] Patient: Hallie Krishnamurthy 63 y/o F admitted on 05/30/18 for Hip fracture. Chief Complaint: [POD #1 s/p left emma hip arthroplasty Patient doing quite well this morning. Reports minimal to no pain. Denies CP, SOB, numbness, tingling, calf pain. Wanting to go to swing bed at [facility] tomorrow.] Objective Vital signs: Vital Signs Temp Pulse Pulse Pulse Resp BP BP 06/01/18 03:45 97.9 F 77 24 H 100/63 06/01/18 00:00 97.7 F 77 18 99/60 05/31/18 20:00 98.4 F 85 18 110/65 05/31/18 19:21 79 18 05/31/18 19:19 84 18 05/31/18 18:24 99.4 F H 05/31/18 15:48 76 116/70 05/31/18 15:33 73 115/71 05/31/18 15:18 78 110/69 05/31/18 15:03 76 107/68 05/31/18 14:48 76 109/68 05/31/18 14:33 77 117/73 05/31/18 14:18 78 113/70 05/31/18 14:03 81 125/74 05/31/18 13:48 74 115/73 05/31/18 13:45 82 18 05/31/18 13:33 83 133/77 05/31/18 13:26 99.4 F H 80 20 142/63 05/31/18 13:10 84 20 146/63 05/31/18 12:55 86 86 20 155/78 05/31/18 12:40 94 H 22 138/81 05/31/18 12:35 95 H 22 163/80 05/31/18 12:30 93 H 22 154/85 05/31/18 12:26 99.3 F H 91 H 22 141/75 05/31/18 07:24 99.5 F H 89 18 117/70 05/31/18 07:16 87 20 Pulse Ox 06/01/18 03:45 92 06/01/18 00:00 91 05/31/18 20:00 95 05/31/18 19:21 93 05/31/18 19:19 05/31/18 18:24 05/31/18 15:48 92 05/31/18 15:33 94 05/31/18 15:18 94 05/31/18 15:03 94 05/31/18 14:48 93 05/31/18 14:33 93 05/31/18 14:18 93 05/31/18 14:03 91 05/31/18 13:48 91 05/31/18 13:45 92 05/31/18 13:33 87 L 05/31/18 13:26 90 05/31/18 13:10 96 05/31/18 12:55 95 05/31/18 12:40 95 05/31/18 12:35 96 05/31/18 12:30 95 05/31/18 12:26 94 05/31/18 07:24 89 L 05/31/18 07:16 90 Intake and Output 05/31/18 06/01/18 06/01/18 21:59 05:59 13:59 Intake Total 774 / 774 480 / 480 Output Total 500 / 500 350 / 350 Balance 274 / 274 130 / 130 Intake: IV 54 / 54 Cleocin 600 mg In Dextrose 5% 54 / 54 in Water 50 ml @ 100 mls/hr IV Q8H [facility] Rx#:[id number] Oral 720 / 720 480 / 480 Output: Urine Catheter Amount 500 / 500 350 / 350 Other: Urine Appearance Clear Clear Urine Color Dark Yellow Light Nina Urine Odor Normal Weight 187 lb Intake & Output: Intake & Output 05/31/18 06/01/18 06/01/18 21:59 05:59 13:59 Intake Total 774 / 774 480 / 480 Output Total 500 / 500 350 / 350 Balance 274 / 274 130 / 130 Weight 187 lb Intake: IV 54 / 54 Cleocin 600 mg In Dextrose 5% 54 / 54 in Water 50 ml @ 100 mls/hr IV Q8H [facility] Rx#:[id number] Oral 720 / 720 480 / 480 Output: Urine Catheter Amount 500 / 500 350 / 350 Other: Urine Appearance Clear Clear Urine Color Dark Yellow Light Nina Urine Odor Normal Incision: Yes healing, No draining, No red, No swollen, No inflamed, Yes clean and dry Incision clean and dry: Yes Dressing: Yes clean, Yes dry, Yes intact Weight bearing status: as tolerated Range of motion: full foot and ankle Neurological exam IM: Yes alert, Yes oriented X3, Yes motor sensory intact, Yes neurovascular intact Extremities exam IM: No calf tenderness, Yes normal capillary refill, No Kingston' s sign, Yes Foot pink and warm, Yes neurovascular intact - [place]iperhal Pulses Peripheral pulses: 2+: dorsalis pedis (L), dorsalis pedis (R), posterior tibialis (L), posterior tibialis (R) - Labs CBC & BMP: 06/01/18 05:07 05/31/18 05:48 Labs: Orthopedic Labs 06/01/18 05/30/18 05:07 16:27 PT 15.2 H 13.8 INR 1.2 H 1.1 06/01/18 05/31/18 05:07 05:48 Hgb 12.3 Hct 31.5 L 36.1 Assessment and Plan (1) Closed left hip fracture POD #1 s/p left emma hip arthroplasty: -d/c planning to swing bed at [facility] tomorrow 06/02/18 per hospitalist d/c -pain control -WBAT -DVT prophylaxis -f/u in clinic 10-14 days for PO -dermabond protocol Status: Acute
--- NOTE | 2018-06-01 06:47 | Discharge Summary ---
Ortho Discharge - JESSY - Patient Instructions Diet: Regular Diet Activity: weight bearing as tolerated Total Hip Protocol: Follow activity instructions as provided by Physical Therapy. Dressing Care: May shower in 2 days, Other (dermabond protocol) - Problem Maintenance (1) Closed left hip fracture Status: Acute - Follow Up Plan Follow Up Appointments: Fallon Benavidez MD [Primary Care Provider] - Edith Lyles PA-C [Physician Paradi Operator] - Disposition: [facility] Swing Bed Prognosis: Fair Rehab Potential: Fair I certify that the patient requires SNF services: Yes Overall status at discharge: patient is progressing back to baseline - Orders For Discharge Prescriptions: Aspirin [Ecotrin] 325 mg PO BID #60 tab.ec HYDROcodone/APAP 10/325MG [[place] 10-325Mg] 1 - 2 tab PO Q4HP PRN #60 tab PRN Reason: Pain Level 3-6
[2018-06-01] MEDS: CARBIDOPA/LEVODOPA 25/100 TABLET PO SCH ×3 (08:22→22:29)
[2018-06-01] MEDS: OMEPRAZOLE 20 MG CAPSULE PO SCH (08:22)
[2018-06-01] MEDS: HEPARIN 5,000 UNIT/ML VIAL SQ SCH ×2 (08:23→22:30)
[2018-06-01] MEDS: DOCUSATE SODIUM 100 MG CAPSULE PO SCH ×2 (08:23→22:29)
[2018-06-01] MEDS: 0.9 % SODIUM CHLORIDE 10 ML SYRINGE IV SCH ×3 (08:24→22:38)
[2018-06-01] MEDS ORDERED: ASPIRIN 325 MG ENTERIC COATED TABLET PO SCH (09:00)
--- NOTE | 2018-06-01 13:01 | Internal Med Progress Note ---
Medical - PN: Subj Patient information: Note initiated : 06/01/18 at 12:59 pm Service Date, if different from initiated Date: [] Patient: Hallie Krishnamurthy 63 y/o F admitted on 05/30/18 for Hip fracture. Chief Complaint: [] Interval history: Ms. Krishnamurthy is a 63 year old F with h/o parkinsons plus syndrome presents to the ER today from outside facility for evaluation of hip fracture The patient fell down on monday, mechanical fall, no head injury reported. The patient usually ambulates with support, and was able to ambulate after fall, thinks she knew she had something broken but did not go to hospital, thought it would get better. The pain progressively got worse over the next 2 days and the patient eventually decided to go to the ER The patient denies any other complaints, her main issue is poor mobility with parkinsons plus syndrome, she needs help with basic care. Very poor functional status. She denies any h/o DM, CVA, TIA, CAD, CHF, CKD or DM, She lives with a partner who helps her with ADL, pt parents were in the ER with her. In the ER the patient was hemodynamically stable, CXR is negative. Labs unremarkable ECG normal sinus, poor voltage, no previous ekg to compare I reviewed echo done in the past 2014 which was normal. She was also evaluated with Carotid Doppler/ lower extremity Doppler, which showed mild atherosclerotic disease [id number] 9/27 Patient seen examined drowsy, post op, partner by bed side, 06/01 Pt seen examined no acute issues, doing well post op not on oxygen eating well partner by bedside. Pertinent ROS: Denies headache, dizziness Denies chest pain, palpitations Denies cough or shortness of breath Denies abdominal pain, nausea or vomiting. - Constitutional Vitals: Vital Signs Temp Pulse Resp BP Pulse Ox 98.5 F 77 18 100/63 91 06/01/18 11:19 06/01/18 03:45 06/01/18 11:19 06/01/18 11:19 06/01/18 11:19 Period Temp Pulse Resp BP Sys/Daniel Pulse Ox Last 24 Hr 97.3 F-99.4 F 73-85 18-24 94-146/57-77 87-96 Intake and Output 05/31/18 06/01/18 06/01/18 21:59 05:59 13:59 Intake Total 774 / 774 480 / 480 Output Total 500 / 500 350 / 350 Balance 274 / 274 130 / 130 Weight 187 lb Intake & Output: Intake & Output 05/31/18 06/01/18 06/01/18 21:59 05:59 13:59 Intake Total 774 / 774 480 / 480 Output Total 500 / 500 350 / 350 Balance 274 / 274 130 / 130 Weight 187 lb Intake: IV 54 / 54 Cleocin 600 mg In Dextrose 5% 54 / 54 in Water 50 ml @ 100 mls/hr IV Q8H [facility] Rx#:[id number] Oral 720 / 720 480 / 480 Output: Urine Catheter Amount 500 / 500 350 / 350 Other: Urine Appearance Clear Clear Urine Color Dark Yellow Light Nina Urine Odor Normal Exam: Constitutional; Afebrile, cooperative, alert, not in distress. Eyes- No icterus, , No periorbital swelling Ears- Ext ear normal, hearing normal to conversation. Neck- Midline trachea, supple Respiratory system: Air Entry equal on both sides, No crackles or wheezing, no rhonchi. CVS- Rate rhythm regular, S1,S2 heard, no gallop, no rub. 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 no change Medical - PN: Obj Da - Labs CBC & Chem 7: 06/01/18 05:07 05/31/18 05:48 Labs: Abnormal Lab Results 06/01/18 06/01/18 05/31/18 05:07 05:07 05:48 RBC Hct 31.5 L PT 15.2 H INR 1.2 H Glucose 116 H Uric Acid 2.1 L Urine Urobilinogen 05/31/18 05/31/18 05:48 03:30 RBC 3.94 L Hct PT INR Glucose Uric Acid Urine Urobilinogen 2.0 A Meds: Medications Acetaminophen (Tylenol) 650 mg PO Q6HP PRN PRN Reason: PAIN/FEVER > 101 Hydrocodone Bitart/Acetaminophen ([place] 10/325mg) 0 tab PO Q4HP PRN PRN Reason: PAIN LEVEL 3-6 Albuterol/Ipratropium (Duoneb) 3 ml NEB Q6HRT [facility] Last Admin: 06/01/18 08:00 Dose: Not Given Aspirin (Ecotrin) 325 mg PO DAILY [facility] Last Admin: 06/01/18 08:23 Dose: 325 mg Bisacodyl (Dulcolax) 10 mg [place] Q2-3DAYS PRN PRN Reason: Constipation Carbidopa/Levodopa (Sinemet 25/100) 1 tab PO BID [facility] Last Admin: 06/01/18 08:25 Dose: Not Given Docusate Sodium (Colace) 100 mg PO BID [facility] Last Admin: 06/01/18 08:23 Dose: 100 mg Gabapentin (Neurontin) 600 mg PO [facility] Last Admin: 05/31/18 20:46 Dose: 600 mg Heparin Sodium (Porcine) (Heparin) 5,000 unit SQ Q12 [facility] Last Admin: 06/01/18 08:23 Dose: 5,000 unit Magnesium Hydroxide (Milk Of Magnesia) 30 ml PO BIDP PRN PRN Reason: Constipation Methocarbamol (Robaxin) 750 mg PO Q6HP PRN PRN Reason: Muscle Spasm Morphine Sulfate (Morphine) 0 mg IV Q1HP PRN PRN Reason: PAIN LEVEL > 6 [facility]epraz[facility]c) [facility] Last Admin: 06/01/18 08:22 Dose: 20 mg Ondansetron HCl (Zofran) 4 mg IV Q6HP PRN PRN Reason: Nausea And Vomiting Ondansetron HCl (Zofran Odt) 4 mg SL Q4HP PRN PRN Reason: Nausea And Vomiting Polyethylene Glycol (Miralax) 17 gm PO DAILYP PRN PRN Reason: Constipation Senna (Senokot) 2 tab PO [facility] Last Admin: 05/31/18 20:47 Dose: 2 tab Sodium Biphosphate/Sodium Phosphate (Fleets Adult) 1 dose [place] Q3-4DAYS PRN PRN Reason: Constipation Sodium Chloride (Saline Flush) 10 ml IV Q8 [facility] Last Admin: 06/01/18 08:24 Dose: 10 ml Throat Lozenges (Cepacol) 1 lozenge PO PRN PRN PRN Reason: Sore Throat Tizanidine HCl (Zanaflex) 4 mg PO [facility] Last Admin: 05/31/18 20:47 Dose: 4 mg Venlafaxine HCl (Effexor Xr) 37.5 mg PO [facility] Last Admin: 05/31/18 20:48 Dose: 37.5 mg Medical - PN: A/P - Time Spent With Patient Total time spent is greater than 50% in coordination of care (as documented) at patient's floor/unit and/or counseling patient: - Narrative A/P Narrative: A/P Hip fracture- Management per ortho, s/p surgery , post op day 1 Parkinson disease, plus- Continue Levodopa carbidopa , given her neurological status, high risk for post op delirum, but stable so far Fibromyalgia- continue Effexor Home meds resumed/ lasix and asa 81 DVT hep sq, now switch to lovenox in AM Diet regular OT/PT/ST Medical - PN: Qual - Stroke Symptom Onset Unknown: No - VTE Deep Vein Thrombosis/Pulmonary Embolism Present on Admission: No
[2018-06-01] MEDS ORDERED: LORATADINE 10 MG TABLET PO ONE (15:31)
[2018-06-01] MEDS: ACETAMINOPHEN 325 MG TABLET PO PRN ×2 (15:43→22:38)
[2018-06-01] MEDS: SENNOSIDES 1 TABLET PO SCH (22:29)
[2018-06-01] MEDS: tiZANidine 4 MG TABLET PO SCH (22:29)
[2018-06-01] MEDS: GABAPENTIN 300 MG CAPSULE PO SCH (22:29)
[2018-06-01] MEDS: VENLAFAXINE 37.5 MG TAB.ER.24H PO SCH (22:31)
[2018-06-02] MEDS: IPRATROPIUM/ALBUTEROL 3 ML AMPUL.NEB NEB SCH ×4 (00:28→18:55)
[2018-06-02] MEDS: 0.9 % SODIUM CHLORIDE 10 ML SYRINGE IV SCH ×3 (06:57→22:35)
[2018-06-02] MEDS: OMEPRAZOLE 20 MG CAPSULE PO SCH (08:01)
[2018-06-02 08:40] LABS: Basophils # (Auto) 0 K/mcL (0.0-0.3); Basophils % (Auto) 0.3 % (0.0-2.0); Eosinophils # (Auto) 0.1 K/mcL (0.0-0.7); Eosinophils % (Auto) 1.1 % (0.0-7.0); Granulocytes % (Auto) 63.2 % (38.0-78.0); Lymphocytes # (Auto) 2.5 K/mcL (1.5-4.8); Lymphocytes % (Auto) 25.5 % (15.5-49.0); Mean Cell Volume 91.8 fL (80.0-100.0); Mean Corpuscular HGB Conc 33.9 g/dL (31.0-36.0); Mean Corpuscular Hemoglobin 31.1 pg (26.0-34.0); Monocytes % (Auto) 9.9 % (1.0-12.0); Platelet Count 138 K/mcL (140-440); RBC 3.41 M/mcL (4.00-5.20); Red Cell Distribution Width 12.4 % (11.5-14.5)
[2018-06-02 08:54] LABS: Blood Urea Nitrogen 13 mg/dl (8-23)
[2018-06-02] MEDS ORDERED: ASPIRIN 81 MG TAB.CHEW PO SCH (09:00)
--- NOTE | 2018-06-02 09:14 | XRay Report ---
CLINICAL INFORMATION: Febrile. Tachypnea COMPARISON: 07/19/2011 and 05/30/2018 FINDINGS: The heart appears to be borderline enlarged. Mediastinum is unremarkable. Pulmonary vessels show mild upper lobe redistribution. No definite edema. Lungs are clear. No effusions. IMPRESSION: Possible mild CHF or volume overload. This appearance may merely artifact related to portable technique, poor inspiratory result and rotation. Consider two view upright chest x-ray for better evaluation Interpreted and Authenticated by: Liang Brewer 06/02/18
[2018-06-02] MEDS: ASPIRIN 81 MG TAB.CHEW PO SCH (10:26)
[2018-06-02] MEDS: HEPARIN 5,000 UNIT/ML VIAL SQ SCH ×2 (10:26→22:01)
[2018-06-02] MEDS: LORATADINE 10 MG TABLET PO SCH (10:26)
[2018-06-02] MEDS: CARBIDOPA/LEVODOPA 25/100 TABLET PO SCH ×3 (10:26→22:04)
[2018-06-02] MEDS: DOCUSATE SODIUM 100 MG CAPSULE PO SCH ×2 (10:26→22:01)
[2018-06-02] MEDS: FUROSEMIDE 40 MG TABLET PO SCH (10:26)
[2018-06-02] MEDS ORDERED: IOPAMIDOL 100 ML BOTTLE IV ONE (11:01)
--- NOTE | 2018-06-02 11:43 | Internal Med Progress Note ---
Medical - PN: Subj Patient information: Note initiated : 06/02/18 at 11:40 am Service Date, if different from initiated Date: [] Patient: Hallie Krishnamurthy a 63 y/o F admitted on 05/30/18 for Hip fracture. Chief Complaint: [] Interval history: Ms. Krishnamurthy is a 63 year old F with h/o parkinsons plus syndrome presents to the ER today from outside facility for evaluation of hip fracture The patient fell down on monday, mechanical fall, no head injury reported. The patient usually ambulates with support, and was able to ambulate after fall, thinks she knew she had something broken but did not go to hospital, thought it would get better. The pain progressively got worse over the next 2 days and the patient eventually decided to go to the ER The patient denies any other complaints, her main issue is poor mobility with parkinsons plus syndrome, she needs help with basic care. Very poor functional status. She denies any h/o DM, CVA, TIA, CAD, CHF, CKD or DM, She lives with a partner who helps her with ADL, pt parents were in the ER with her. In the ER the patient was hemodynamically stable, CXR is negative. Labs unremarkable ECG normal sinus, poor voltage, no previous ekg to compare I reviewed echo done in the past 2014 which was normal. She was also evaluated with Carotid Doppler/ lower extremity Doppler, which showed mild atherosclerotic disease [id number] 9/27 Patient seen examined drowsy, post op, partner by bed side, 06/01 Pt seen examined no acute issues, doing well post op not on oxygen eating well partner by bedside. 06/02 Patient seen and examined, this morning was doing well. However since yesterday evening patient has been having fevers, patient was also a bit drowsy overnight. She has not been able to use her incentive spirometry well. Patient x-ray chest is negative. WBC count is normal, pro calcitonin is negative. However the patient did have significant fevers overnight. Patient does not have any evidence of thrombophlebitis. No significant edema of the feet. CT chest abdomen and pelvis was done with contrast. CT chest showed bilateral pneumonia. Likely aspirational. This is a preliminary reading full reading yet to be reported. Blood cultures ordered patient started on IV levofloxacin as well as metronidazole. Discharge is on hold. Encouraged aggressive pulmonary toilet. Pertinent ROS: Denies headache, dizziness Denies chest pain, palpitations Denies cough or shortness of breath Denies abdominal pain, nausea or vomiting. - Constitutional Vitals: Vital Signs Temp Pulse Resp BP Pulse Ox 99.8 F H 77 16 110/58 94 06/02/18 07:11 06/02/18 07:43 06/02/18 07:43 06/02/18 07:11 06/02/18 07:44 Period Temp Pulse Resp BP Sys/Daniel Pulse Ox Last 24 Hr 99 F-102.2 F 70-90 16-28 97-112/58-73 90-95 Intake and Output 06/01/18 06/02/18 06/02/18 21:59 05:59 13:59 Intake Total 800 / 800 480 / 480 Output Total 250 / 250 375 / 375 Balance 550 / 550 105 / 105 Weight 184 lb Intake & Output: Intake & Output 06/01/18 06/02/18 06/02/18 21:59 05:59 13:59 Intake Total 800 / 800 480 / 480 Output Total 250 / 250 375 / 375 Balance 550 / 550 105 / 105 Weight 184 lb Intake: Oral 800 / 800 480 / 480 Output: Urine Catheter Amount 250 / 250 375 / 375 Other: Meal Dinner Percent of Meal Consumed 60 Feeding Ability Total Assistance Urine Appearance Clear Uretheral (Kendrick) Clear Urine Color Light Nina Bright Yellow Uretheral (Kendrick) Dark Yellow Urine Odor Strong Exam: Constitutional; warm to touch, cooperative, alert, not in distress. Respiratory system: Air Entry equal on both sides, No crackles or wheezing, no rhonchi. CVS- Rate rhythm regular, S1,S2 heard, no gallop, no rub. Abdomen- Soft nontender abdomen, no organomegaly, no tenderness, no guarding or rigidity, [employer]- AOOx3, moving all extremities, no gross focal deficit noted. Unchanged exam Medical - PN: Obj Da - Labs CBC & Chem 7: 06/02/18 07:49 06/02/18 08:00 Labs: Abnormal Lab Results 06/02/18 06/02/18 06/02/18 08:00 07:49 04:49 RBC 3.41 L Hgb 10.6 L Hct 31.3 L Plt Count 138 L [place] # (Auto) 1.0 H PT 15.0 H INR 1.2 H Glucose 115 H Uric Acid Urine Urobilinogen 06/02/18 06/01/18 06/01/18 04:49 05:07 05:07 RBC Hgb Hct 30.7 L 31.5 L Plt Count [place] # (Auto) PT 15.2 H INR 1.2 H Glucose Uric Acid Urine Urobilinogen 05/31/18 05/31/18 05/31/18 05:48 05:48 03:30 RBC 3.94 L Hgb Hct Plt Count [place] # (Auto) PT INR Glucose 116 H Uric Acid 2.1 L Urine Urobilinogen 2.0 A Meds: Medications Acetaminophen (Tylenol) 650 mg PO Q6HP PRN PRN Reason: PAIN/FEVER > 101 Last Admin: 06/01/18 22:38 Dose: 650 mg Hydrocodone Bitart/Acetaminophen ([place] 10/325mg) 0 tab PO Q4HP PRN PRN Reason: PAIN LEVEL 3-6 Albuterol/Ipratropium (Duoneb) 3 ml NEB Q6HRT [facility] Last Admin: 06/02/18 07:37 Dose: 3 ml Aspirin (Aspirin) 81 mg PO DAILY [facility] Last Admin: 06/02/18 10:26 Dose: 81 mg Bisacodyl (Dulcolax) 10 mg AR Q2-3DAYS PRN PRN Reason: Constipation Carbidopa/Levodopa (Sinemet 25/100) 1 tab PO BID [facility] Last Admin: 06/02/18 10:26 Dose: 1 tab Docusate Sodium (Colace) 100 mg PO BID [facility] Last Admin: 06/02/18 10:26 Dose: 100 mg Furosemide (Lasix) 40 mg PO DAILY [facility] Last Admin: 06/02/18 10:26 Dose: 40 mg Gabapentin (Neurontin) 600 mg PO HS [facility] Last Admin: 06/01/18 22:29 Dose: 600 mg Heparin Sodium (Porcine) (Heparin) 5,000 unit SQ Q12 [facility] Last Admin: 06/02/18 10:26 Dose: 5,000 unit Acetaminophen (Ofirmev) 650 mg in 65 mls @ 130 mls/hr IV Q6HP PRN PRN Reason: PAIN/FEVER > 101 Levofloxacin (Levaquin) 750 mg in 150 mls @ 100 mls/hr IV Q24H [facility] Metronidazole (Flagyl) 500 mg in 100 mls @ 100 mls/hr IV Q8H [facility] Loratadine (Claritin) 10 mg PO DAILY [facility] Last Admin: 06/02/18 10:26 Dose: 10 mg Magnesium Hydroxide (Milk Of Magnesia) 30 ml PO BIDP PRN PRN Reason: Constipation Methocarbamol (Robaxin) 750 mg PO Q6HP PRN PRN Reason: Muscle Spasm Morphine Sulfate (Morphine) 0 mg IV Q1HP PRN PRN Reason: PAIN LEVEL > 6 Omeprazole (Prilosec) 20 mg PO [facility] Last Admin: 06/02/18 08:01 Dose: 20 mg Ondansetron HCl (Zofran) 4 mg IV Q6HP PRN PRN Reason: Nausea And Vomiting Ondansetron HCl (Zofran Odt) 4 mg SL Q4HP PRN PRN Reason: Nausea And Vomiting Polyethylene Glycol (Miralax) 17 gm PO DAILYP PRN PRN Reason: Constipation Senna (Senokot) 2 tab PO [facility] Last Admin: 06/01/18 22:29 Dose: 2 tab Sodium Biphosphate/Sodium Phosphate (Fleets Adult) 1 dose AR Q3-4DAYS PRN PRN Reason: Constipation Sodium Chloride (Saline Flush) 10 ml IV Q8 [facility] Last Admin: 06/02/18 06:57 Dose: 10 ml Throat Lozenges (Cepacol) 1 lozenge PO PRN PRN PRN Reason: Sore Throat Tizanidine HCl (Zanaflex) 4 mg PO [facility] Last Admin: 06/01/18 22:29 Dose: 4 mg Venlafaxine HCl (Effexor Xr) 37.5 mg PO [facility] Last Admin: 06/01/18 22:31 Dose: 37.5 mg Medical - PN: A/P - Time Spent With Patient Total time spent is greater than 50% in coordination of care (as documented) at patient's floor/unit and/or counseling patient: - Narrative A/P Narrative: A/P Hip fracture- Management per ortho, s/p surgery , Aspirational Pneumoina- strt on levofloxacin and flagyl, monitor for response, aggresive pulm toilet, Parkinson disease, plus- Continue Levodopa carbidopa , given her neurological status, high risk for post op delirum, but stable so far Fibromyalgia- continue Effexor Home meds resumed/ lasix and asa 81 DVT hep sq, now switch to lovenox in AM Diet regular OT/PT/ST anticipate d/c to [facility] on monday. Medical - PN: Qual - Stroke Symptom Onset Unknown: No - VTE Deep Vein Thrombosis/Pulmonary Embolism Present on Admission: No
[2018-06-02] MEDS: LEVOFLOXACIN 750 MG/150 ML BAG IV SCH (12:07)
[2018-06-02] MEDS: metroNIDAZOLE 500 MG/100 ML BAG IV SCH ×2 (15:27→22:35)
[2018-06-02] MEDS: ACETAMINOPHEN 325 MG TABLET PO PRN (15:38)
--- NOTE | 2018-06-02 18:19 | Cat Scan Report ---
CLINICAL INFORMATION: Fever COMPARISON: Chest CT 12/04/2013. TECHNIQUE: Enteric contrast was withheld. 80 cc of Isovue-300 were injected intravenously, and 50 seconds later 2.5 mm helical slices were obtained from the lung apices through the subtrochanteric regions of the femurs. Following reconstruction, 2.5 mm sagittal, coronal and axial reformatted images were processed and reviewed at multiple windows and levels. 7 mm MIP reconstructions were obtained through the lungs to optimize nodule detection.The exam was performed using radiation dose optimization techniques including, but not limited to, automated exposure control, adjustment of the mA and/or kV according to patient size and use of iterative reconstruction technique. FINDINGS: Pulmonary parenchymal windows show moderate sized patchy infiltrate in the inferior right lower lobe with small patchy infiltrate in the inferior left lower lobe. Small bilateral pleural effusions are noted. Mediastinal windows show the thoracic aorta and pulmonary arteries are well opacified and normal in contour and caliber. The heart is borderline enlarged with minimal scattered calcific plaque in the coronary arteries. There is no adenopathy in the mediastinal hilar or axillary regions. Esophagus is normal. Thyroid is unremarkable. Images through the abdomen show the gallbladder is surgically absent. Intrahepatic and common bile ducts are normal: CBD is 6 mm. The liver, both kidneys, adrenal glands, spleen, pancreas and aorta are normal in size, configuration and attenuation without focal lesion. 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 The SMA, MAXIME, renal and iliac arteries are widely patent. There is no free air, free fluid or adenopathy. Stomach, small and large bowel are normal. Urinary bladder is unremarkable. Hysterectomy/oophorectomy changes are noted. Left hip prostheses is anatomically aligned. Chronic bilateral L5-S1 spondylolysis with grade 1 spondylolisthesis results in moderate bilateral IV foraminal narrowing impinging exiting L5 nerve roots - more prominent the left side. The remaining lumbar spine shows mild degenerative change. Left mastectomy changes noted. Soft tissues and both the chest wall abdomen and pelvis are, otherwise, normal IMPRESSION: 1. Moderate right and small left lower lobe infiltrates or, less likely, atelectasis. Consider aspiration. Small bilateral pleural effusions. 2. Left mastectomy changes. No evidence of adenopathy or metastatic disease throughout the chest, abdomen or pelvis 3. Chronic bilateral L5-S1 spondylolysis with grade 1 spondylolisthesis and disc protrusion resulting in moderate bilateral IV foraminal narrowing impinging exiting L5 nerve roots - more severe on the left.. 4. 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 Please correlate with post prandial pain and nausea. Interpreted and Authenticated by: Liang Brewer 06/02/18
[2018-06-02] MEDS: VENLAFAXINE 37.5 MG TAB.ER.24H PO SCH (22:01)
[2018-06-02] MEDS: tiZANidine 4 MG TABLET PO SCH (22:02)
[2018-06-02] MEDS: SENNOSIDES 1 TABLET PO SCH (22:02)
[2018-06-02] MEDS: GABAPENTIN 300 MG CAPSULE PO SCH (22:02)
[2018-06-03] MEDS: IPRATROPIUM/ALBUTEROL 3 ML AMPUL.NEB NEB SCH ×4 (01:06→18:53)
[2018-06-03] MEDS: ACETAMINOPHEN 325 MG TABLET PO PRN (04:46)
[2018-06-03] MEDS: 0.9 % SODIUM CHLORIDE 10 ML SYRINGE IV SCH ×2 (05:37→14:06)
[2018-06-03] MEDS: metroNIDAZOLE 500 MG/100 ML BAG IV SCH ×2 (05:37→14:05)
[2018-06-03] MEDS: FUROSEMIDE 40 MG TABLET PO SCH (09:12)
[2018-06-03] MEDS: LORATADINE 10 MG TABLET PO SCH (09:12)
[2018-06-03] MEDS: DOCUSATE SODIUM 100 MG CAPSULE PO SCH ×2 (09:12→20:27)
[2018-06-03] MEDS: OMEPRAZOLE 20 MG CAPSULE PO SCH (09:12)
[2018-06-03] MEDS: ASPIRIN 81 MG TAB.CHEW PO SCH (09:13)
[2018-06-03] MEDS: CARBIDOPA/LEVODOPA 25/100 TABLET PO SCH (09:13)
[2018-06-03] MEDS: HEPARIN 5,000 UNIT/ML VIAL SQ SCH ×2 (09:13→20:29)
[2018-06-03] MEDS: LEVOFLOXACIN 750 MG/150 ML BAG IV SCH (12:32)
--- NOTE | 2018-06-03 13:36 | Internal Med Progress Note ---
Medical - PN: Subj Patient information: Note initiated : 06/03/18 at 1:34 pm Service Date, if different from initiated Date: [] Patient: Hallie Krishnamurthy 63 y/o F admitted on 05/30/18 for Hip fracture. Chief Complaint: [] recent worsened mobilities weight loss and falls. after hospitalization has had fevers and found to have scant bilat pneumonia attributed to aspiration. caregiver Bhavna says pt lost 60 lbs in last 1 year. Walks with 1 person assist or walker. the pt has had disease 8 years. worst progression in last 6 months and severe progression in last 2 months. Interval history: fever 101 at 0400. Feels ok. Says swallows solid food fine. doesnt want the current diet of dysphagia food but hasnt refused it yet. - Constitutional Vitals: Vital Signs Temp Pulse Resp BP Pulse Ox 98.7 F 89 18 108/71 93 06/03/18 11:17 06/03/18 13:14 06/03/18 13:14 06/03/18 11:17 06/03/18 11:17 Period Temp Pulse Resp BP Sys/Daniel Pulse Ox Last 24 Hr 97.3 F-101.8 F 71-92 16-28 96-121/58-76 92-94 Intake and Output 06/02/18 06/03/18 06/03/18 21:59 05:59 13:59 Intake Total 100 / 100 1520 / 1520 100 / 100 Output Total 2200 / 2200 950 / 950 Balance -2100 / -2100 570 / 570 100 / 100 Weight 190 lb 8 oz Intake & Output: Intake & Output 06/02/18 06/03/18 06/03/18 21:59 05:59 13:59 Intake Total 100 / 100 1520 / 1520 100 / 100 Output Total 2200 / 2200 950 / 950 Balance -2100 / -2100 570 / 570 100 / 100 Weight 190 lb 8 oz Intake: IV 100 / 100 100 / 100 100 / 100 Oral 1420 / 1420 Output: Urine Catheter Amount 950 / 950 Void Amount 2200 / 2200 Other: Urine Appearance Clear Clear Uretheral (Kendrick) Clear Urine Color Straw Dark Yellow Uretheral (Kendrick) Bright Yellow Urine Odor Normal General appearance: average body habitus Exam: mod overweight Medical - PN: Obj Da - Labs CBC & Chem 7: 06/03/18 04:08 06/02/18 08:00 Labs: Abnormal Lab Results 06/03/18 06/03/18 06/02/18 04:08 04:08 08:00 RBC Hgb Hct 30.8 L Plt Count [place] # (Auto) PT 14.9 H INR 1.2 H Glucose 115 H 06/02/18 06/02/18 06/02/18 07:49 04:49 04:49 RBC 3.41 L Hgb 10.6 L Hct 31.3 L 30.7 L Plt Count 138 L [place] # (Auto) 1.0 H PT 15.0 H INR 1.2 H Glucose 06/01/18 06/01/18 05:07 05:07 RBC Hgb Hct 31.5 L Plt Count [place] # (Auto) PT 15.2 H INR 1.2 H Glucose Meds: Medications Acetaminophen (Tylenol) 650 mg PO Q6HP PRN PRN Reason: PAIN/FEVER > 101 Last Admin: 06/03/18 04:46 Dose: 650 mg Hydrocodone Bitart/Acetaminophen ([place] 10/325mg) 0 tab PO Q4HP PRN PRN Reason: PAIN LEVEL 3-6 Albuterol/Ipratropium (Duoneb) 3 ml NEB Q6HRT [facility] Last Admin: 06/03/18 13:02 Dose: 3 ml Aspirin (Aspirin) 81 mg PO DAILY [facility] Last Admin: 06/03/18 09:13 Dose: 81 mg Bisacodyl (Dulcolax) 10 mg ND Q2-3DAYS PRN PRN Reason: Constipation Carbidopa/Levodopa (Sinemet 25/100) 1 tab PO BID [facility] Last Admin: 06/03/18 09:13 Dose: Not Given Docusate Sodium (Colace) 100 mg PO BID [facility] Last Admin: 06/03/18 09:12 Dose: 100 mg Furosemide (Lasix) 40 mg PO DAILY [facility] Last Admin: 06/03/18 09:12 Dose: 40 mg Gabapentin (Neurontin) 600 mg PO HS [facility] Last Admin: 06/02/18 22:02 Dose: 600 mg Heparin Sodium (Porcine) (Heparin) 5,000 unit SQ Q12 [facility] Last Admin: 06/03/18 09:13 Dose: 5,000 unit Acetaminophen (Ofirmev) 650 mg in 65 mls @ 130 mls/hr IV Q6HP PRN PRN Reason: PAIN/FEVER > 101 Levofloxacin (Levaquin) 750 mg in 150 mls @ 100 mls/hr IV Q24H [facility] Last Admin: 06/03/18 12:32 Dose: 100 mls/hr Metronidazole (Flagyl) 500 mg in 100 mls @ 100 mls/hr IV Q8H [facility] Last Infusion: 06/03/18 06:37 Dose: Infused Loratadine (Claritin) 10 mg PO DAILY [facility] Last Admin: 06/03/18 09:12 Dose: 10 mg Magnesium Hydroxide (Milk Of Magnesia) 30 ml PO BIDP PRN PRN Reason: Constipation Methocarbamol (Robaxin) 750 mg PO Q6HP PRN PRN Reason: Muscle Spasm Morphine Sulfate (Morphine) 0 mg IV Q1HP PRN PRN Reason: PAIN LEVEL > 6 Omeprazole (Prilosec) 20 mg PO QAMAC [facility] Last Admin: 06/03/18 09:12 Dose: 20 mg Ondansetron HCl (Zofran) 4 mg IV Q6HP PRN PRN Reason: Nausea And Vomiting Ondansetron HCl (Zofran Odt) 4 mg SL Q4HP PRN PRN Reason: Nausea And Vomiting Polyethylene Glycol (Miralax) 17 gm PO DAILYP PRN PRN Reason: Constipation Senna (Senokot) [address] [facility] Last Admin: 06/02/18 22:02 Dose: 2 tab Sodium Biphosphate/Sodium Phosphate (Fleets Adult) 1 dose ND Q3-4DAYS PRN PRN Reason: Constipation Sodium Chloride (Saline Flush) 10 ml IV Q8 [facility] Last Admin: 06/03/18 05:37 Dose: 10 ml Throat Lozenges (Cepacol) 1 lozenge PO PRN PRN PRN Reason: Sore Throat Tizanidine HCl (Zanaflex) [address] [facility] Last Admin: 06/02/18 22:02 Dose: 4 mg Venlafaxine HCl (Effexor Xr) 37.[address] [facility] Last Admin: 06/02/18 22:01 Dose: 37.5 mg Medical - PN: A/P - Time Spent With Patient Total time spent is greater than 50% in coordination of care (as documented) at patient's floor/unit and/or counseling patient: Greater than 35 minutes (1) Closed left hip fracture Status: Acute Assessment and plan: repaired. therapy as tolerated Current Visit: Yes (2) Aspiration pneumonia of both lower lobes Status: Acute Assessment and plan: cont levaquin and flagyl. if fevers persist consider drug fever. 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 pt with cogwheeling rigidity bilat. not treated with mirapex. did not tolerate sinemet in past. see local neurologist in [facility] [place]. Current Visit: Yes Medical - PN: Qual - Stroke Symptom Onset Unknown: No - VTE Deep Vein Thrombosis/Pulmonary Embolism Present on Admission: No
[2018-06-03] MEDS: ACETAMINOPHEN 650 MG/65 ML BOTTLE IV PRN (16:34)
[2018-06-03] MEDS: tiZANidine 4 MG TABLET PO SCH (20:27)
[2018-06-03] MEDS: SENNOSIDES 1 TABLET PO SCH (20:27)
[2018-06-03] MEDS: GABAPENTIN 300 MG CAPSULE PO SCH (20:27)
[2018-06-03] MEDS: VENLAFAXINE 37.5 MG TAB.ER.24H PO SCH (20:28)
[2018-06-03] MEDS ORDERED: IOPAMIDOL 100 ML BOTTLE IV ONE (23:55)
[2018-06-04] MEDS: metroNIDAZOLE 500 MG/100 ML BAG IV SCH ×4 (00:37→21:48)
[2018-06-04] MEDS: 0.9 % SODIUM CHLORIDE 10 ML SYRINGE IV SCH ×5 (00:38→21:49)
[2018-06-04] MEDS: IPRATROPIUM/ALBUTEROL 3 ML AMPUL.NEB NEB SCH ×4 (00:47→18:53)
[2018-06-04 06:26] LABS: Basophils # (Auto) 0 K/mcL (0.0-0.3); Basophils % (Auto) 0.4 % (0.0-2.0); Eosinophils # (Auto) 0.3 K/mcL (0.0-0.7); Eosinophils % (Auto) 4.8 % (0.0-7.0); Granulocytes % (Auto) 66.2 % (38.0-78.0); Lymphocytes # (Auto) 1.4 K/mcL (1.5-4.8); Lymphocytes % (Auto) 18.9 % (15.5-49.0); Mean Corpuscular HGB Conc 33.8 g/dL (31.0-36.0); Mean Corpuscular Hemoglobin 30.7 pg (26.0-34.0); Monocytes # (Auto) 0.7 K/mcL (0.1-0.9); Monocytes % (Auto) 9.7 % (1.0-12.0); Platelet Count 192 K/mcL (140-440); RBC 3.39 M/mcL (4.00-5.20); Red Cell Distribution Width 12.4 % (11.5-14.5)
[2018-06-04 06:53] LABS: ALT/SGPT 21 U/l (0-40); Albumin 2.9 gm/dL (3.2-5.2); Alkaline Phosphatase 52 U/L (39-117); Blood Urea Nitrogen 15 mg/dl (8-23)
[2018-06-04] MEDS: OMEPRAZOLE 20 MG CAPSULE PO SCH (07:22)
[2018-06-04] MEDS: FUROSEMIDE 40 MG TABLET PO SCH (08:58)
[2018-06-04] MEDS: HEPARIN 5,000 UNIT/ML VIAL SQ SCH ×2 (08:58→21:46)
[2018-06-04] MEDS: DOCUSATE SODIUM 100 MG CAPSULE PO SCH ×2 (08:58→21:44)
[2018-06-04] MEDS: LORATADINE 10 MG TABLET PO SCH (08:58)
[2018-06-04] MEDS: ASPIRIN 81 MG TAB.CHEW PO SCH (08:59)
--- NOTE | 2018-06-04 10:06 | Cat Scan Report ---
CLINICAL INFORMATION: Fever with unequal pupils. Known pituitary macroadenoma COMPARISON: Brain MRI 08/05/2016 TECHNIQUE: Following injection of 50 cc of Isovue-300, 2.5 mm helical slices were obtained from the skull base through the vertex. Following reconstruction, 2.5 mm axial reformatted images were reviewed at bone and parenchymal windows.The exam was performed using radiation dose optimization techniques including, but not limited to, automated exposure control, adjustment of the mA and/or kV according to patient size and use of iterative reconstruction technique. FINDINGS: The ventricles, sulci, fissures and cisterns are symmetrically enlarged bowel mild age-related atrophy - stable. The 13 mm macroadenoma in the adenohypophysis is grossly unchanged from the MRI nearly 2 years prior: 08/05/2016. Minimal chronic ischemic changes seen in the deep cerebral white matter with a few punctate remote lacunar infarcts in the basal ganglia regions - stable. There is no intracerebral hemorrhage, mass effect, edema or other acute finding. Bone windows show no osseous abnormality. IMPRESSION: Mild atrophy and minimal chronic ischemic changes deep cerebral white matter compatible with age - stable. Few punctate remote lacunar infarcts in the basal ganglia are stable. 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 There is no acute finding Interpreted and Authenticated by: Liang Brewer 06/04/18
[2018-06-04 10:46] LABS: Appearance,Urine CLEAR; Bacteria,Urine 0 /hpf (0); Bilirubin,Urine NEG (NEG); Color,Urine YELLOW; Glucose,Urine (UA) NEGATIVE (NEG); Leukocyte Esterase,Urine NEG /uL (NEG); Mucus,Urine FEW /hpf (0); Protein,Urine NEG (NEG); Specific Gravity,Urine 1.012 (1.000-1.035); Urine Blood 0.03 mg/dL (<0.03); Urine RBC 0 /hpf (0-1); Urine Squamous Epithelial Cell 0 /hpf (0-4); Urine WBC < 1 /hpf (0-4); Urobilinogen,Urine NEG (NEG)
[2018-06-04] MEDS: LEVOFLOXACIN 750 MG/150 ML BAG IV SCH (12:19)
--- NOTE | 2018-06-04 17:05 | Infectious Disease Consult ---
History of Present Illness Patient information: Note initiated : 06/04/18 at 4:46 pm Service Date, if different from initiated Date: [] Patient: Hallie Krishnamurthy 63 y/o F admitted on 05/30/18 for Hip fracture. 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 She was found to have communited fracture of left hip. She underwent left hip hemiarthroplasty on the 31 May without any complications. Patient has been spiking fevers since 01 June mainly in the evening with highest being 39.0 on [address] chest abdomen pelvis on 02 June with results suggesting moderate right and small left lower lobe infiltrates with concerns for aspiration along with small pleural effusions. Blood cultures were sent. Patient was started on IV Levaquin and Flagyl for concerns of aspiration pneumonia on and subsequently her fever curve has down trended with T-max of 38.2 yesterday and afebrile so far today. Patient is on 1 L of oxygen currently which is improved compared to 3 L on 31 May. She is not coughing much but the caregiver mentions that she has been eating regular food after surgery and given her neurological status she could have silently aspirated. Patient had also swallow evaluation done on 31 May which showed severe oral stage dysphagia due to motor difficulty with mastication and oral preparation. At the time of visit today, patient was emotionally labile. She requested discomfort in her lower belly and wanted her bladder to be emptied using a catheter. She was on 1 L of oxygen through nasal cannula, denied any fever, cough, chills, nausea vomiting, diarrhea. The partner also mentioned that patient is at the end of life, is DNR, and thus requested that she be switched to regular diet as patient does not like mechanical soft diet. She mentioned that patient and herself understand that mechanical soft diet is the right diet given oral dysphagia but the quality of life is also important especially since patient is at the end of life. I shared with them the plan to switch her to oral antibiotics and complete a short course of 5-7 days in total. Review of Systems All systems PM: reviewed and no additional remarkable complaints except as stated Past History Past medical history: Venous insufficiency Fibromylagia OA, generalized Breast cancer - dx 2007, treated with surgery Chronic cough - allergic rhinnitis, asthma r/o by Larry, laryngospasms GERD HTN Pituitary adenoma HLD - intolerant of statins colon polps - q 5 years with [facility] chronic low back pain, spinal stenosis Past surgical history: CARMELO with BSO - uterine fibroids Cholecystectomy Left masectomy 2007 CTS bilateral Bilateral shoulders scoped Left knee replacement Right knee scopes x 7 to 8 Left nerve entrapment, with relocaton of the nerve Tonsillectomy Past social history: Patient lives with her partner in [place]. According to the partner patient was functional in the way that she could use a cane to get to the bathroom and move around but needed assistance with other activities of daily living. Medications and Allergies Home Medications Medication Instructions Recorded Confirmed Type Albuterol Sulfate [Ventolin] 1 puff INH Q4HP PRN 05/30/18 05/30/18 History Aspirin [Lucinda Chewable Aspirin] 81 mg PO DAILY 05/30/18 05/30/18 History Bisacodyl [Gentle Laxative] 5 mg PO DAILY 05/30/18 05/30/18 History Docusate Sodium [Colace] 100 mg PO DAILY 05/30/18 05/30/18 History Etodolac [Lodine] 400 mg PO BID 05/30/18 05/30/18 History Furosemide [Lasix] 40 mg PO DAILY 05/30/18 05/30/18 History Gabapentin 600 mg PO DAILY 05/30/18 05/30/18 History Loratadine/Pseudoephedrine 1 each PO DAILY 05/30/18 05/30/18 History [Claritin-D 12 Hour Tablet] Multivitamin [One Daily] 1 each PO DAILY 05/30/18 05/30/18 History Nystatin Crm 1 dose TOPICAL TID 05/30/18 05/30/18 History Omeprazole [PriLOSEC] 20 mg PO DAILY 05/30/18 05/30/18 History Venlafaxine HCl [Effexor Xr] 37.5 mg PO DAILY 05/30/18 05/30/18 History Vit A,C & E/Lutein/Minerals 1 tab PO DAILY 05/30/18 05/30/18 History [Ocuvite] tiZANidine HCL [Zanaflex] 4 mg PO HS 05/30/18 05/30/18 History Aspirin [Ecotrin] 325 mg PO BID #60 tab.ec 06/01/18 Rx HYDROcodone/APAP 10/325MG [[place] 1 - 2 tab PO Q4HP PRN #60 tab 06/01/18 Rx 10-325Mg] Allergies Allergy/AdvReac Type Severity Reaction Status Date / Time Penicillins Allergy Mild Hives Verified 05/31/18 06:58 adhesive tape AdvReac Mild Rash Verified 05/31/18 06:59 carbidopa [From Sinemet] AdvReac Mild Nausea/Vomiting, Verified 06/03/18 03:28 Oversedation cefazolin [CEFAZOLIN] AdvReac Mild Nausea/Vomi Verified 05/31/18 06:58 ting levodopa [From Sinemet] AdvReac Mild Nausea/Vomiting, Verified 06/03/18 03:28 Oversedation Physical Examination Vital signs: Temp Pulse Resp BP Pulse Ox 37.5 C H 83 20 102/67 90 06/04/18 16:32 06/04/18 13:14 06/04/18 13:14 06/04/18 11:03 06/04/18 11:03 General appearance: no acute distress, alert Eyes pulmonary: nonicteric ENT: oropharynx moist Auscultation: bilateral: clear Cardiovascular: regular rate and rhythm Gastrointestinal: normoactive bowel sounds, non-tender tearful Results - Laboratory Findings CBC and BMP: 06/04/18 04:35 06/04/18 04:35 PT/INR, D-dimer PT 15.4 sec (11.9-14.5) H 06/04/18 04:35 INR 1.2 (0.9-1.1) H 06/04/18 04:35 Abnormal lab findings: Abnormal Labs 05/31/18 05/31/18 05/31/18 03:30 05:48 05:48 RBC 3.94 L Hgb Hct Plt Count Lymph # (Auto) [place] # (Auto) PT INR Glucose 116 H Uric Acid 2.1 L Albumin Urine Occult Blood Urine Urobilinogen 2.0 A 06/01/18 06/01/18 06/02/18 05:07 05:07 04:49 RBC Hgb Hct 31.5 L 30.7 L Plt Count Lymph # (Auto) [place] # (Auto) PT 15.2 H INR 1.2 H Glucose Uric Acid Albumin Urine Occult Blood Urine Urobilinogen 06/02/18 06/02/18 06/02/18 04:49 07:49 08:00 RBC 3.41 L Hgb 10.6 L Hct 31.3 L Plt Count 138 L Lymph # (Auto) [place] # (Auto) 1.0 H PT 15.0 H INR 1.2 H Glucose 115 H Uric Acid Albumin Urine Occult Blood Urine Urobilinogen 06/03/18 06/03/18 06/04/18 04:08 04:08 04:35 RBC Hgb Hct 30.8 L Plt Count Lymph # (Auto) [place] # (Auto) PT 14.9 H 15.4 H INR 1.2 H 1.2 H Glucose Uric Acid Albumin Urine Occult Blood Urine Urobilinogen 06/04/18 06/04/18 06/04/18 04:35 04:35 09:49 RBC 3.39 L Hgb 10.4 L Hct 30.9 L Plt Count Lymph # (Auto) 1.4 L [place] # (Auto) PT INR Glucose 109 H Uric Acid Albumin 2.9 L Urine Occult Blood 0.03 A Urine Urobilinogen Microbiology: Microbiology 06/02/18 11:30 Blood Blood Culture - Preliminary 06/02/18 11:45 Blood Blood Culture - Preliminary Assessment and Plan - Narrative A/P Narrative: Assessment: 1. Aspiration pneumonia: Day 3 of therapy with clinical response in terms of downtrending fever, declining oxygen requirements 2. Parkinson plus syndrome with cortical basilar degeneration 3. No sepsis Recommendations: Switch to oral levofloxacin 750 mg every 24 hours and oral metronidazole 500 mg every 8 hours -Continue antibiotics until 06/07/2018 If patient continues to spike fevers after that, will recommend imaging of the left hip to rule out any underlying infection or fluid collection Twan Pemberton MD Infectious disease
[2018-06-04] MEDS: ACETAMINOPHEN 650 MG/65 ML BOTTLE IV PRN (18:06)
--- NOTE | 2018-06-04 21:29 | Internal Med Progress Note ---
Medical - PN: Subj Patient information: Note initiated : 06/04/18 at 9:27 pm Service Date, if different from initiated Date: [] Patient: Hallie Krishnamurthy 63 y/o F admitted on 05/30/18 for Hip fracture. Chief Complaint: [] Interval history: pt with fevers to 101 today again and blood cultures done. Pt and caregiver/RN Bhavna state that after pts hip ORIF many of the guest that visited her ended up with high fever and flu like illness. Pt had flu shot plans foiled by impromptu need for hip repair after fall. has been febrile here in hospital and diaphoretic. With fever pt becomes irritable and has body aches. Does not have body aches when not febrile. - Constitutional Vitals: Vital Signs Temp Pulse Resp BP Pulse Ox 98.3 F 92 H 18 102/67 92 06/04/18 18:51 06/04/18 20:34 06/04/18 20:34 06/04/18 11:03 06/04/18 20:34 Period Temp Pulse Resp BP Sys/Daniel Pulse Ox Last 24 Hr 97.8 F-101.2 F 65-95 18-20 97-111/58-67 90-94 Intake and Output 06/04/18 06/04/18 06/04/18 05:59 13:59 21:59 Intake Total 100 / 100 250 / 250 960 / 960 Output Total 300 / 300 500 / 500 851 / 851 Balance -200 / -200 -250 / -250 109 / 109 Intake & Output: Intake & Output 06/04/18 06/04/18 06/04/18 05:59 13:59 21:59 Intake Total 100 / 100 250 / 250 960 / 960 Output Total 300 / 300 500 / 500 851 / 851 Balance -200 / -200 -250 / -250 109 / 109 Intake: IV 100 / 100 250 / 250 Oral 960 / 960 Output: Urine Catheter Amount 300 / 300 500 / 500 850 / 850 # of times incontinent of urine 1 / Other: Urine Appearance Clear Uretheral (Kendrick) Clear Urine Color Light Nina Light Nina Uretheral (Kendrick) Straw Urine Odor Normal Stool Size Smear Stool Consistency Loose # of times incontinent of 1 Bowels - Respiratory Respiratory exam: Present: normal respiratory exam - Cardiovascular Cardiovascular exam: Present: normal rate and rhythm - Extremities Exam Extremities exam: Absent: pedal edema Additional comments: left hip incision dressing clean and dry. Not wound edema or drainage. Minimal tender. Medical - PN: Obj Da - Labs CBC & Chem 7: 06/04/18 04:35 06/04/18 04:35 Labs: Abnormal Lab Results 06/04/18 06/04/18 06/04/18 09:49 04:35 04:35 RBC 3.39 L Hgb 10.4 L Hct 30.9 L Plt Count Lymph # (Auto) 1.4 L [place] # (Auto) PT INR Glucose 109 H Albumin 2.9 L Urine Occult Blood 0.03 A 06/04/18 06/03/18 06/03/18 04:35 04:08 04:08 RBC Hgb Hct 30.8 L Plt Count Lymph # (Auto) [place] # (Auto) PT 15.4 H 14.9 H INR 1.2 H 1.2 H Glucose Albumin Urine Occult Blood 06/02/18 06/02/18 06/02/18 08:00 07:49 04:49 RBC 3.41 L Hgb 10.6 L Hct 31.3 L Plt Count 138 L Lymph # (Auto) [place] # (Auto) 1.0 H PT 15.0 H INR 1.2 H Glucose 115 H Albumin Urine Occult Blood 06/02/18 04:49 RBC Hgb Hct 30.7 L Plt Count Lymph # (Auto) [place] # (Auto) PT INR Glucose Albumin Urine Occult Blood Meds: Medications Acetaminophen (Tylenol) 650 mg PO Q6HP PRN PRN Reason: PAIN/FEVER > 101 Last Admin: 06/03/18 04:46 Dose: 650 mg Hydrocodone Bitart/Acetaminophen ([place] 10/325mg) 0 tab PO Q4HP PRN PRN Reason: PAIN LEVEL 3-6 Albuterol/Ipratropium (Duoneb) 3 ml NEB Q6HRT [facility] Last Admin: 06/04/18 18:53 Dose: 3 ml Aspirin (Aspirin) 81 mg PO DAILY [facility] Last Admin: 06/04/18 08:59 Dose: 81 mg Bisacodyl (Dulcolax) 10 mg MT Q2-3DAYS PRN PRN Reason: Constipation Docusate Sodium (Colace) 100 mg PO BID [facility] Last Admin: 06/04/18 08:58 Dose: 100 mg Furosemide (Lasix) 40 mg PO DAILY [facility] Last Admin: 06/04/18 08:58 Dose: 40 mg Gabapentin (Neurontin) 600 mg PO HS [facility] Last Admin: 06/03/18 20:27 Dose: 600 mg Heparin Sodium (Porcine) (Heparin) 5,000 unit SQ Q12 [facility] Last Admin: 06/04/18 08:58 Dose: 5,000 unit Acetaminophen (Ofirmev) 650 mg in 65 mls @ 130 mls/hr IV Q6HP PRN PRN Reason: PAIN/FEVER > 101 Last Admin: 06/04/18 18:06 Dose: 130 mls/hr Levofloxacin (Levaquin) 750 mg in 150 mls @ 100 mls/hr IV Q24H [facility] Last Infusion: 06/04/18 13:49 Dose: Infused Metronidazole (Flagyl) 500 mg in 100 mls @ 100 mls/hr IV Q8H [facility] Last Admin: 06/04/18 14:27 Dose: 100 mls/hr Loratadine (Claritin) 10 mg PO DAILY [facility] Last Admin: 06/04/18 08:58 Dose: 10 mg Magnesium Hydroxide (Milk Of Magnesia) 30 ml PO BIDP PRN PRN Reason: Constipation Methocarbamol (Robaxin) 750 mg PO Q6HP PRN PRN Reason: Muscle Spasm Morphine Sulfate (Morphine) 0 mg IV Q1HP PRN PRN Reason: PAIN LEVEL > 6 Omeprazole (Prilosec) 20 mg PO QAMAC [facility] Last Admin: 06/04/18 07:22 Dose: 20 mg Ondansetron HCl (Zofran) 4 mg IV Q6HP PRN PRN Reason: Nausea And Vomiting Ondansetron HCl (Zofran Odt) 4 mg SL Q4HP PRN PRN Reason: Nausea And Vomiting Polyethylene Glycol (Miralax) 17 gm PO DAILYP PRN PRN Reason: Constipation Senna (Senokot) 2 tab PO HS [facility] Last Admin: 06/03/18 20:27 Dose: 2 tab Sodium Biphosphate/Sodium Phosphate (Fleets Adult) 1 dose MT Q3-4DAYS PRN PRN Reason: Constipation Sodium Chloride (Saline Flush) 10 ml IV Q8 [facility] Last Admin: 06/04/18 14:27 Dose: 10 ml Throat Lozenges (Cepacol) 1 lozenge PO PRN PRN PRN Reason: Sore Throat Tizanidine HCl (Zanaflex) 4 mg PO HS [facility] Last Admin: 06/03/18 20:27 Dose: 4 mg Venlafaxine HCl (Effexor Xr) 37.5 mg PO HS [facility] Last Admin: 06/03/18 20:28 Dose: 37.5 mg Medical - PN: A/P - Time Spent With Patient Total time spent is greater than 50% in coordination of care (as documented) at patient's floor/unit and/or counseling patient: Greater than 35 minutes (1) Closed left hip fracture Status: Acute Assessment and plan: repaired. therapy as tolerated no signs of wound infection Current Visit: Yes (2) Aspiration pneumonia of both lower lobes Status: Acute Assessment and plan: cont levaquin and flagyl. if fevers persist consider drug fever. no rash though suspect this should have resolved fever by now as not on much oxygen. diaphoretic currently. Will check influenza swabs Current Visit: Yes (3) Parkinson's disease, Lewy body Problem details: diagnosed as probable cortical basal degeneration Status: Acute Assessment and plan: dysphagia diet and speech therapy. pt with cogwheeling rigidity bilat. not treated with mirapex. did not tolerate sinemet in past. see local neurologist in [facility] Juan Manuel Daniel. will attempt low dose mirapex tonight Current Visit: Yes (4) Relapsing fever Status: Acute Assessment and plan: will check influenza swab. With normal WBC. febrile viral illness suspected Current Visit: Yes Medical - PN: Qual - Stroke Symptom Onset Unknown: No - VTE Deep Vein Thrombosis/Pulmonary Embolism Present on Admission: No
[2018-06-04] MEDS: SENNOSIDES 1 TABLET PO SCH (21:44)
[2018-06-04] MEDS: tiZANidine 4 MG TABLET PO SCH (21:45)
[2018-06-04] MEDS: GABAPENTIN 300 MG CAPSULE PO SCH (21:45)
[2018-06-04] MEDS: VENLAFAXINE 37.5 MG TAB.ER.24H PO SCH (21:45)
[2018-06-05] MEDS: IPRATROPIUM/ALBUTEROL 3 ML AMPUL.NEB NEB SCH ×4 (01:46→19:14)
[2018-06-05] MEDS: metroNIDAZOLE 500 MG/100 ML BAG IV SCH ×2 (05:57→13:10)
[2018-06-05] MEDS: 0.9 % SODIUM CHLORIDE 10 ML SYRINGE IV SCH ×3 (05:58→21:38)
[2018-06-05] MEDS: DOCUSATE SODIUM 100 MG CAPSULE PO SCH ×2 (10:29→21:36)
[2018-06-05] MEDS: LORATADINE 10 MG TABLET PO SCH (10:29)
[2018-06-05] MEDS: FUROSEMIDE 40 MG TABLET PO SCH (10:29)
[2018-06-05] MEDS: ASPIRIN 81 MG TAB.CHEW PO SCH (10:29)
[2018-06-05] MEDS: OMEPRAZOLE 20 MG CAPSULE PO SCH (10:29)
[2018-06-05] MEDS: HEPARIN 5,000 UNIT/ML VIAL SQ SCH ×2 (10:29→21:37)
[2018-06-05] MEDS: LEVOFLOXACIN 750 MG/150 ML BAG IV SCH (13:11)
--- NOTE | 2018-06-05 14:27 | Infectious Disease Prog Note ---
Subjective Patient information: Note initiated : 06/05/18 at 2:25 pm Service Date, if different from initiated Date: [] Patient: Hallie Krishnamurthy 63 y/o F admitted on 05/30/18 for Hip fracture. Chief Complaint: [] Interval history: Patient doing same as yesterday. Less emotionally labile at the time of visit. Endorsed fever for 1-2 hours last night. Denies any shortness of breath, cough, diarrhea, nausea vomiting. Is able to take p.o. without any problems. Objective - Vital Signs Vital signs: Vital Signs Temp Pulse Pulse Resp BP BP Pulse Ox 06/05/18 13:10 80 20 06/05/18 08:00 37.8 C H 84 22 92/61 90 06/05/18 07:51 77 16 06/05/18 07:47 90 06/05/18 07:46 90 06/05/18 04:00 37.4 C H 80 24 H 109/67 91 06/05/18 01:56 68 20 06/05/18 01:46 81 22 06/05/18 00:00 36.8 C 75 24 H 119/76 93 06/04/18 20:34 92 H 18 92 06/04/18 20:00 36.8 C 87 24 H 115/64 91 06/04/18 19:10 91 06/04/18 18:51 36.8 C 06/04/18 18:50 95 H 18 06/04/18 18:06 38.4 C H 06/04/18 17:20 38.4 C H 06/04/18 16:32 37.5 C H Intake and Output 06/05/18 06/05/18 06/05/18 05:59 13:59 21:59 Intake Total 980 / 980 100 / 100 Output Total 150 / 150 Balance 830 / 830 100 / 100 Intake: IV 100 / 100 100 / 100 Oral 880 / 880 Output: Void Amount 150 / 150 Intake & Output: Intake & Output 06/05/18 06/05/18 06/05/18 05:59 13:59 21:59 Intake Total 980 / 980 100 / 100 Output Total 150 / 150 Balance 830 / 830 100 / 100 Intake: IV 100 / 100 100 / 100 Oral 880 / 880 Output: Void Amount 150 / 150 - General Appearance General appearance: well-developed Respiratory: clear (On the front. Decreased breath sounds at bases) Cardiology: no murmurs, normal S1, normal S2 Gastrointestinal: normoactive bowel sounds - Lab 06/04/18 04:35 06/04/18 04:35 Most recent lab results Calcium 9.2 mg/dl (8.6-10.4) 06/04/18 04:35 Phosphorus 2.9 mg/dL (2.7-4.5) 05/31/18 05:48 Magnesium 1.9 mg/dL (1.6-2.5) 05/31/18 05:48 Microbiology 06/02/18 11:30 Blood Blood Culture - Preliminary 06/02/18 11:45 Blood Blood Culture - Preliminary Medications Active Medications: Acetaminophen (Tylenol) 650 mg PO Q6HP PRN PRN Reason: PAIN/FEVER > 101 Last Admin: 06/03/18 04:46 Dose: 650 mg Admin: 06/02/18 15:38 Dose: 650 mg Admin: 06/01/18 22:38 Dose: 650 mg Admin: 06/01/18 15:43 Dose: 650 mg Hydrocodone Bitart/Acetaminophen ([place] 10/325mg) 0 tab PO Q4HP PRN PRN Reason: PAIN LEVEL 3-6 Albuterol/Ipratropium (Duoneb) 3 ml NEB Q6HRT [facility] Last Admin: 06/05/18 13:14 Dose: 3 ml Admin: 06/05/18 07:46 Dose: 3 ml Admin: 06/05/18 01:46 Dose: 3 ml Admin: 06/04/18 18:53 Dose: 3 ml Admin: 06/04/18 13:03 Dose: 3 ml Admin: 06/04/18 07:15 Dose: 3 ml Admin: 06/04/18 00:47 Dose: 3 ml Admin: 06/03/18 18:53 Dose: 3 ml Admin: 06/03/18 13:02 Dose: 3 ml Admin: 06/03/18 07:43 Dose: 3 ml Admin: 06/03/18 01:06 Dose: 3 ml Admin: 06/02/18 18:55 Dose: 3 ml Admin: 06/02/18 12:57 Dose: 3 ml Admin: 06/02/18 07:37 Dose: 3 ml Admin: 06/02/18 00:28 Dose: 3 ml Admin: 06/01/18 19:49 Dose: 3 ml Admin: 06/01/18 14:03 Dose: Not Given Non-Admin Reason: Clinical Judgement Admin: 06/01/18 08:00 Dose: Admin: 06/01/18 01:14 Dose: 3 ml Admin: 05/31/18 19:10 Dose: 3 ml Aspirin (Aspirin) 81 mg PO DAILY [facility] Last Admin: 06/05/18 10:29 Dose: 81 mg Admin: 06/04/18 08:59 Dose: 81 mg Admin: 06/03/18 09:13 Dose: 81 mg Admin: 06/02/18 10:26 Dose: 81 mg Bisacodyl (Dulcolax) 10 mg CA Q2-3DAYS PRN PRN Reason: Constipation Docusate Sodium (Colace) 100 mg PO BID [facility] Last Admin: 06/05/18 10:29 Dose: 100 mg Admin: 06/04/18 21:44 Dose: 100 mg Admin: 06/04/18 08:58 Dose: 100 mg Admin: 06/03/18 20:27 Dose: 100 mg Admin: 06/03/18 09:12 Dose: 100 mg Admin: 06/02/18 22:01 Dose: 100 mg Admin: 06/02/18 10:26 Dose: 100 mg Admin: 06/01/18 22:29 Dose: 100 mg Admin: 06/01/18 08:23 Dose: 100 mg Admin: 05/31/18 20:47 Dose: 100 mg Furosemide (Lasix) 40 mg PO DAILY [facility] Last Admin: 06/05/18 10:29 Dose: 40 mg Admin: 06/04/18 08:58 Dose: 40 mg Admin: 06/03/18 09:12 Dose: 40 mg Admin: 06/02/18 10:26 Dose: 40 mg Gabapentin (Neurontin) 600 mg PO HS [facility] Last Admin: 06/04/18 21:45 Dose: 600 mg Admin: 06/03/18 20:27 Dose: 600 mg Admin: 06/02/18 22:02 Dose: 600 mg Admin: 06/01/18 22:29 Dose: 600 mg Admin: 05/31/18 20:46 Dose: 600 mg Heparin Sodium (Porcine) (Heparin) 5,000 unit SQ Q12 [facility] Last Admin: 06/05/18 10:29 Dose: 5,000 unit Admin: 06/04/18 21:46 Dose: 5,000 unit Admin: 06/04/18 08:58 Dose: 5,000 unit Admin: 06/03/18 20:29 Dose: 5,000 unit Admin: 06/03/18 09:13 Dose: 5,000 unit Admin: 06/02/18 22:01 Dose: 5,000 unit Admin: 06/02/18 10:26 Dose: 5,000 unit Admin: 06/01/18 22:30 Dose: 5,000 unit Admin: 06/01/18 08:23 Dose: 5,000 unit Admin: 05/31/18 20:46 Dose: 5,000 unit Acetaminophen (Ofirmev) 650 mg in 65 mls @ 130 mls/hr IV Q6HP PRN PRN Reason: PAIN/FEVER > 101 Last Admin: 06/04/18 18:06 Dose: 130 mls/hr Infusion: 06/03/18 17:00 Dose: 0 mls/hr Admin: 06/03/18 16:34 Dose: 130 mls/hr Levofloxacin (Levaquin) 750 mg in 150 mls @ 100 mls/hr IV Q24H [facility] Last Admin: 06/05/18 13:11 Dose: 100 mls/hr Infusion: 06/04/18 13:49 Dose: 0 mls/hr Admin: 06/04/18 12:19 Dose: 100 mls/hr Infusion: 06/03/18 14:02 Dose: 100 mls/hr Admin: 06/03/18 12:32 Dose: 100 mls/hr Infusion: 06/02/18 13:53 Dose: 0 mls/hr Admin: 06/02/18 12:07 Dose: 100 mls/hr Metronidazole (Flagyl) 500 mg in 100 mls @ 100 mls/hr IV Q8H [facility] Last Admin: 06/05/18 13:10 Dose: 100 mls/hr Infusion: 06/05/18 06:57 Dose: 100 mls/hr Admin: 06/05/18 05:57 Dose: 100 mls/hr Infusion: 06/04/18 22:48 Dose: 100 mls/hr Admin: 06/04/18 21:48 Dose: 100 mls/hr Infusion: 06/04/18 15:27 Dose: 100 mls/hr Admin: 06/04/18 14:27 Dose: 100 mls/hr Infusion: 06/04/18 07:15 Dose: 100 mls/hr Admin: 06/04/18 06:15 Dose: 100 mls/hr Infusion: 06/04/18 01:37 Dose: 100 mls/hr Admin: 06/04/18 00:37 Dose: 100 mls/hr Infusion: 06/03/18 15:05 Dose: 100 mls/hr Admin: 06/03/18 14:05 Dose: 100 mls/hr Infusion: 06/03/18 06:37 Dose: 0 mls/hr Admin: 06/03/18 05:37 Dose: 100 mls/hr Infusion: 06/02/18 23:35 Dose: 100 mls/hr Admin: 06/02/18 22:35 Dose: 100 mls/hr Infusion: 06/02/18 16:27 Dose: 100 mls/hr Admin: 06/02/18 15:27 Dose: 100 mls/hr Loratadine (Claritin) 10 mg PO DAILY [facility] Admin: 06/05/18 10:29 Dose: 10 mg Admin: 06/04/18 08:58 Dose: 10 mg Admin: 06/03/18 09:12 Dose: 10 mg Admin: 06/02/18 10:26 Dose: 10 mg Magnesium Hydroxide (Milk Of Magnesia) 30 ml PO BIDP PRN PRN Reason: Constipation Methocarbamol (Robaxin) 750 mg PO Q6HP PRN PRN Reason: Muscle Spasm Morphine Sulfate (Morphine) 0 mg IV Q1HP PRN PRN Reason: PAIN LEVEL > 6 Omeprazole (Prilosec) 20 mg PO QAMAC [facility] Admin: 06/05/18 10:29 Dose: 20 mg Admin: 06/04/18 07:22 Dose: 20 mg Admin: 06/03/18 09:12 Dose: 20 mg Admin: 06/02/18 08:01 Dose: 20 mg Admin: 06/01/18 08:22 Dose: 20 mg Ondansetron HCl (Zofran) 4 mg IV Q6HP PRN PRN Reason: Nausea And Vomiting Ondansetron HCl (Zofran Odt) 4 mg SL Q4HP PRN PRN Reason: Nausea And Vomiting Polyethylene Glycol (Miralax) 17 gm PO DAILYP PRN PRN Reason: Constipation Pramipexole Dihydrochloride (Mirapex) 0.5 mg PO ONCE ONE Stop: 06/05/18 21:34 Senna (Senokot) 2 tab PO [facility] Last Admin: 06/04/18 21:44 Dose: 2 tab Admin: 06/03/18 20:27 Dose: 2 tab Admin: 06/02/18 22:02 Dose: 2 tab Admin: 06/01/18 22:29 Dose: 2 tab Admin: 05/31/18 20:47 Dose: 2 tab Sodium Biphosphate/Sodium Phosphate (Fleets Adult) 1 dose CA Q3-4DAYS PRN PRN Reason: Constipation Sodium Chloride (Saline Flush) 10 ml IV Q8 [facility] Last Admin: 06/05/18 05:58 Dose: 10 ml Admin: 06/04/18 21:49 Dose: 10 ml Admin: 06/04/18 14:27 Dose: 10 ml Admin: 06/04/18 13:57 Dose: 10 ml Admin: 06/04/18 04:36 Dose: 10 ml Admin: 06/04/18 00:38 Dose: 10 ml Admin: 06/03/18 14:06 Dose: 10 ml Admin: 06/03/18 05:37 Dose: 10 ml Admin: 06/02/18 22:35 Dose: 10 ml Admin: 06/02/18 13:52 Dose: 10 ml Admin: 06/02/18 06:57 Dose: 10 ml Admin: 06/01/18 22:38 Dose: 10 ml Admin: 06/01/18 15:39 Dose: 10 ml Admin: 06/01/18 08:24 Dose: 10 ml Admin: 05/31/18 20:48 Dose: Not Given Non-Admin Reason: Continuous IV Throat Lozenges (Cepacol) 1 lozenge PO PRN PRN PRN Reason: Sore Throat Tizanidine HCl (Zanaflex) 4 mg PO [facility] Last Admin: 06/04/18 21:45 Dose: 4 mg Admin: 06/03/18 20:27 Dose: 4 mg Admin: 06/02/18 22:02 Dose: 4 mg Admin: 06/01/18 22:29 Dose: 4 mg Admin: 05/31/18 20:47 Dose: 4 mg Venlafaxine HCl (Effexor Xr) 37.5 mg PO [facility] Last Admin: 06/04/18 21:45 Dose: 37.5 mg Admin: 06/03/18 20:28 Dose: 37.5 mg Admin: 06/02/18 22:01 Dose: 37.5 mg Comments: Medication will not scan Admin: 06/01/18 22:31 Dose: 37.5 mg Admin: 05/31/18 20:48 Dose: 37.5 mg Assessment and Plan - Narrative A/P Narrative: Assessment: 1. Aspiration pneumonia: Day 4 of therapy with clinical response in terms of downtrending fever, declining oxygen requirements 2. Parkinson plus syndrome with cortical basilar degeneration 3. No sepsis Recommendations: Switch to oral levofloxacin 750 mg every 24 hours and oral metronidazole 500 mg every 8 hours -Continue antibiotics until 06/07/2018 If patient continues to spike fevers, consider imaging of the left hip to rule out any underlying infection or fluid collection Twan Pemberton MD Infectious disease
--- NOTE | 2018-06-05 19:01 | Internal Med Progress Note ---
Medical - PN: Subj Patient information: Note initiated : 06/05/18 at 6:58 pm Service Date, if different from initiated Date: [] Patient: Hallie Krishnamurthy 63 y/o F admitted on 05/30/18 for Hip fracture. Chief Complaint: [fever] Interval history: still having fevers but shorter duration and lower spike. ID recommendation cont abx but oral till 06/07/18. Pt is feeling better overall and goal to go to swing bed at her home town tomorrow. - Constitutional Vitals: Vital Signs Temp Pulse Resp BP Pulse Ox 98.7 F 80 20 110/66 92 06/05/18 16:00 06/05/18 16:00 06/05/18 16:00 06/05/18 16:00 06/05/18 16:00 Period Temp Pulse Resp BP Sys/Daniel Pulse Ox Last 24 Hr 98.2 F-100.1 F 68-92 16-24 92-119/61-76 90-93 Intake and Output 06/05/18 06/05/18 06/05/18 05:59 13:59 21:59 Intake Total 980 / 980 100 / 100 200 / 200 Output Total 150 / 150 201 / 201 Balance 830 / 830 100 / 100 -1 / -1 Weight 183 lb 8 oz Patient Weight 06/06/18 05:59 Weight 183 lb 8 oz Intake & Output: Intake & Output 06/05/18 06/05/18 06/05/18 05:59 13:59 21:59 Intake Total 980 / 980 100 / 100 200 / 200 Output Total 150 / 150 201 / 201 Balance 830 / 830 100 / 100 -1 / -1 Weight 183 lb 8 oz Intake: IV 100 / 100 100 / 100 Oral 880 / 880 200 / 200 Output: Void Amount 150 / 150 200 / 200 # of times incontinent of urine General appearance: cooperative, no acute distress, obese - Respiratory Respiratory exam: Present: rhonchi Additional comments: bibasilar - Cardiovascular Cardiovascular exam: Present: normal rate and rhythm - Extremities Exam Extremities exam: Absent: calf tenderness, pedal edema - Psychiatric Psychiatric exam: Present: normal affect, normal mood - Skin Skin exam: Present: dry, warm Medical - PN: Obj Da - Labs CBC & Chem 7: 06/04/18 04:35 06/04/18 04:35 Labs: Abnormal Lab Results 06/05/18 06/04/18 06/04/18 04:10 09:49 04:35 RBC Hgb Hct Lymph # (Auto) PT 14.7 H INR Glucose 109 H Albumin 2.9 L Urine Occult Blood 0.03 A 06/04/18 06/04/18 06/03/18 04:35 04:35 04:08 RBC 3.39 L Hgb 10.4 L Hct 30.9 L Lymph # (Auto) 1.4 L PT 15.4 H 14.9 H INR 1.2 H 1.2 H Glucose Albumin Urine Occult Blood 06/03/18 04:08 RBC Hgb Hct 30.8 L Lymph # (Auto) PT INR Glucose Albumin Urine Occult Blood Meds: Medications Acetaminophen (Tylenol) 650 mg PO Q6HP PRN PRN Reason: PAIN/FEVER > 101 Last Admin: 06/03/18 04:46 Dose: 650 mg Hydrocodone Bitart/Acetaminophen (Butler 10/325mg) 0 tab PO Q4HP PRN PRN Reason: PAIN LEVEL 3-6 Albuterol/Ipratropium (Duoneb) 3 ml NEB Q6HRT [facility] Last Admin: 06/05/18 13:14 Dose: 3 ml Aspirin (Aspirin) 81 mg PO DAILY [facility] Last Admin: 06/05/18 10:29 Dose: 81 mg Bisacodyl (Dulcolax) 10 mg NC Q2-3DAYS PRN PRN Reason: Constipation Docusate Sodium (Colace) 100 mg PO BID [facility] Last Admin: 06/05/18 10:29 Dose: 100 mg Furosemide (Lasix) 40 mg PO DAILY [facility] Last Admin: 06/05/18 10:29 Dose: 40 mg Gabapentin (Neurontin) 600 mg PO HS [facility] Last Admin: 06/04/18 21:45 Dose: 600 mg Heparin Sodium (Porcine) (Heparin) 5,000 unit SQ Q12 [facility] Last Admin: 06/05/18 10:29 Dose: 5,000 unit Acetaminophen (Ofirmev) 650 mg in 65 mls @ 130 mls/hr IV Q6HP PRN PRN Reason: PAIN/FEVER > 101 Last Admin: 06/04/18 18:06 Dose: 130 mls/hr Levofloxacin (Levaquin) 500 mg PO DAILY [facility] Loratadine (Claritin) 10 mg PO DAILY [facility] Last Admin: 06/05/18 10:29 Dose: 10 mg Magnesium Hydroxide (Milk Of Magnesia) 30 ml PO BIDP PRN PRN Reason: Constipation Methocarbamol (Robaxin) 750 mg PO Q6HP PRN PRN Reason: Muscle Spasm Metronidazole (Flagyl) 500 mg PO Q12 [facility] Morphine Sulfate (Morphine) 0 mg IV Q1HP PRN PRN Reason: PAIN LEVEL > 6 Omeprazole (Prilosec) 20 mg PO QAMAC [facility] Last Admin: 06/05/18 10:29 Dose: 20 mg Ondansetron HCl (Zofran) 4 mg IV Q6HP PRN PRN Reason: Nausea And Vomiting Ondansetron HCl (Zofran Odt) 4 mg SL Q4HP PRN PRN Reason: Nausea And Vomiting Polyethylene Glycol (Miralax) 17 gm PO DAILYP PRN PRN Reason: Constipation Pramipexole Dihydrochloride (Mirapex) 0.5 mg PO ONCE ONE Stop: 06/05/18 21:34 Senna (Senokot) 2 tab PO [facility] Last Admin: 06/04/18 21:44 Dose: 2 tab Sodium Biphosphate/Sodium Phosphate (Fleets Adult) 1 dose NC Q3-4DAYS PRN PRN Reason: Constipation Sodium Chloride (Saline Flush) 10 ml IV Q8 [facility] Last Admin: 06/05/18 14:55 Dose: 10 ml Throat Lozenges (Cepacol) 1 lozenge PO PRN PRN PRN Reason: Sore Throat Tizanidine HCl (Zanaflex) 4 mg PO [facility] Last Admin: 06/04/18 21:45 Dose: 4 mg Venlafaxine HCl (Effexor Xr) 37.5 mg PO [facility] Last Admin: 06/04/18 21:45 Dose: 37.5 mg Medical - PN: A/P - Time Spent With Patient Total time spent is greater than 50% in coordination of care (as documented) at patient's floor/unit and/or counseling patient: Greater than 35 minutes (1) Closed left hip fracture Status: Acute Assessment and plan: repaired. therapy as tolerated no signs of wound infection no erythema or drainage. Current Visit: Yes (2) Aspiration pneumonia of both lower lobes Status: Acute Assessment and plan: changing to oral flagyl and levaquin. the pts flu swab negative. fevers persist at lower peak and shorter duration. Pt does not wish to proceed with MBS. 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 pt with cogwheeling rigidity bilat. not treated with mirapex. did not tolerate sinemet in past. see local neurologist in [facility]. will attempt low dose mirapex tonight again Current Visit: Yes (4) Relapsing fever Status: Acute Assessment and plan: will check influenza swab. With normal WBC. febrile viral illness suspected though not identified. could do a viral resp screen but unlikely to change therapy. Pt and caregiver RN Bhavna state are comfortable without further workup. Will return if worsen or doesnt resolve. Current Visit: Yes Medical - PN: Qual - Stroke Symptom Onset Unknown: No - VTE Deep Vein Thrombosis/Pulmonary Embolism Present on Admission: No
[2018-06-05] MEDS ORDERED: PRAMIPEXOLE 0.25 MG TABLET PO ONE (21:33)
[2018-06-05] MEDS: metroNIDAZOLE 500 MG TABLET PO SCH (21:36)
[2018-06-05] MEDS: VENLAFAXINE 37.5 MG TAB.ER.24H PO SCH (21:36)
[2018-06-05] MEDS: SENNOSIDES 1 TABLET PO SCH (21:36)
[2018-06-05] MEDS: GABAPENTIN 300 MG CAPSULE PO SCH (21:36)
[2018-06-05] MEDS: tiZANidine 4 MG TABLET PO SCH (21:37)
[2018-06-06] MEDS: IPRATROPIUM/ALBUTEROL 3 ML AMPUL.NEB NEB SCH ×2 (01:14→06:44)
[2018-06-06] MEDS ORDERED: LEVOFLOXACIN 500 MG TABLET PO SCH (09:00)
[2018-06-06] MEDS: OMEPRAZOLE 20 MG CAPSULE PO SCH (09:34)
[2018-06-06] MEDS: metroNIDAZOLE 500 MG TABLET PO SCH (09:34)
[2018-06-06] MEDS: DOCUSATE SODIUM 100 MG CAPSULE PO SCH (09:34)
[2018-06-06] MEDS: LORATADINE 10 MG TABLET PO SCH (09:34)
[2018-06-06] MEDS: ASPIRIN 81 MG TAB.CHEW PO SCH (09:35)
[2018-06-06] MEDS: HEPARIN 5,000 UNIT/ML VIAL SQ SCH (09:35)
[2018-06-06] MEDS: FUROSEMIDE 40 MG TABLET PO SCH (09:35)
[2018-06-06] MEDS: 0.9 % SODIUM CHLORIDE 10 ML SYRINGE IV SCH ×2 (09:40→14:55)
--- NOTE | 2018-06-06 09:59 | Discharge Summary ---
Medical - DS: Prov Patient information: Note initiated : 06/06/18 at 9:58 am Service Date, if different from initiated Date: [] Patient: Hallie Krishnamurthy 63 y/o F admitted on 05/30/18 for Hip fracture. Chief Complaint: [] Date of admission: 05/30/18 17:33 Discharge date: 06/06/18 Primary care physician: Fallon Benavidez Admitting clinician: Meek Shrestha Attending physician on admission: Meek Shrestha Consults: 05/30/18 Consult to Physician [CONS] Stat Comment: Consulting Provider: Meek Shrestha Reason For Exam: Physician to Consult 05/30/18 15:52 Consult to Physician [CONS] Stat Comment: Consulting Provider: Kunal Yang Reason For Exam: Physician to Consult 06/04/18 11:20 Consult to Infectious Disease [CONS] Routine Comment: fever unknown origin. scant pneumonia normal proC Consulting Provider: Twan Pemberton Reason For Exam: Physician to Consult todd davalos Attending physician on discharge: Lukasz Dee Discharging clinician: Lukasz Dee Medical - DS: Meds - Discharge Medications Prescriptions: Aspirin [Ecotrin] 325 mg PO BID #60 tab.ec HYDROcodone/APAP 10/325MG [[place] 10-325Mg] 1 - 2 tab PO Q4HP PRN #60 tab PRN Reason: Pain Level 3-6 Active and Home Medications: Home Medications Albuterol Sulfate [Ventolin] 1 puff INH Q4HP PRN 05/30/18 [History Confirmed Last Taken 05/28/18 17:00] Aspirin [Lucinda Chewable Aspirin] 81 mg PO DAILY 05/30/18 [History Confirmed Last Taken 05/30/18 08:00] Bisacodyl [Gentle Laxative] 5 mg PO DAILY 05/30/18 [History Confirmed 05/30/18 Last Taken 05/09/18 17:00] Docusate Sodium [Colace] 100 mg PO DAILY 05/30/18 [History Confirmed 05/30/18 Last Taken 05/29/18 22:00] Etodolac [Lodine] 400 mg PO BID 05/30/18 [History Confirmed 05/30/18 Last Taken 05/29/18 22:00] Furosemide [Lasix] 40 mg PO DAILY 05/30/18 [History Confirmed 05/30/18 Last Taken 05/28/18 11:00] Gabapentin 600 mg PO DAILY 05/30/18 [History Confirmed 05/30/18 Last Taken 05/29 22:00] Loratadine/Pseudoephedrine [Claritin-D 12 Hour Tablet] 1 each PO DAILY 05/30/18 [History Confirmed 05/30/18 Last Taken 05/30/18 09:00] Multivitamin [One Daily] 1 each PO DAILY 05/30/18 [History Confirmed 05/30/18 Last Taken 05/23/18 10:00] Nystatin Crm 1 dose TOPICAL TID 05/30/18 [History Confirmed 05/30/18 Last Taken 05/29/18 10:00] Omeprazole [PriLOSEC] 20 mg PO DAILY 05/30/18 [History Confirmed 05/30/18 Last Taken 05/30/18 09:00] Venlafaxine HCl [Effexor Xr] 37.5 mg PO DAILY 05/30/18 [History Confirmed Last Taken 05/29/18 22:00] Vit A,C & E/Lutein/Minerals [Ocuvite] 1 tab PO DAILY 05/30/18 [History Confirmed 05/30/18 Last Taken 05/29/18 10:00] tiZANidine HCL [Zanaflex] 4 mg PO HS 05/30/18 [History Confirmed 05/30/18 Last Taken 05/29/18 22:00] Aspirin [Ecotrin] 325 mg PO BID #60 tab.ec 06/01/18 [Rx Last Taken Unknown] HYDROcodone/APAP 10/325MG [[place] 10-325Mg] 1 - 2 tab PO Q4HP PRN #60 tab [Rx Last Taken Unknown] Medical - DS: Hosp Hospital course: Mr. Krishnamurthy is a 63 year old F With cortical basal degeneration presented to the hospital with left hip fracture. This was repaired with ORIF in the form of a left hemiarthroplasty on 05/31/[address] Hansen. The patient had fevers develop while in the hospital and etiology was unclear. White count was never high but CT scan showed scant bibasilar infiltrates and this was assumed to be the source of her fever. Patient was treated for aspiration pneumonia and seen by speech therapy. Speech therapist recommended soft mechanical diet due to slow and methodical chewing but intact swallow. Patient had had a swallow modified barium study at [place] several months ago. Patient declined to perform as she wants to just be careful with a regular diet as her choices in life has greatly diminished. Patient has a retired RN caregiver named Bhavna who is very attentive and spends hours feeding the patient slowly and carefully. The patient's white count and pro-calcitonin were normal here and ultimately influenza nasal swab also negative. I did not perform a viral rest right panel but I suspect the patient has had some sort of viral illness causing her elevated temperatures which have been decreasing over time. She was seen by Dr. Pemberton who recommended completion of her oral Levaquin and metronidazole on the fourth. Patient and caregiver understand that we could be missing some other source of recurrent fever but they're comfortable that they can seek additional workup should that prove problematic. Patient will continue on physical therapy. Due to her cortical basal degeneration is not likely to respond well to Parkinson's medications but does have cogwheeling rigidity and decreased oral motor function. She is willing to try pramipexole 0.5 g 3 times a day and I've spoken with Dr. Minesh Wilson who has accepted the patient in transfer and will further monitor for any improvement or side effects of psychosis. One hour spent in evaluation and care of this patient's discharge date Discharge diagnosis: left hip fracture Secondary discharge diagnosis: aspiration pneumonia relapsing fever Cortico basal degeneration Reason for admission: left hip fracture Pertinent studies/significant findings: negative influenza swab negative UA Complications: none - Time Spent with Patient Total time spent providing and/or coordinating discharge services: Greater than 30 minutes Medical - DS: Exam - Constitutional Vitals: Vital Signs Temp Pulse Pulse Resp BP BP Pulse Ox 06/06/18 08:00 98.0 F 86 20 122/71 90 06/06/18 06:51 90 06/06/18 06:50 72 20 06/06/18 04:00 98.9 F 64 20 102/59 90 06/06/18 01:16 72 20 06/06/18 00:00 100.3 F H 77 22 91/52 91 06/05/18 20:00 98.9 F 82 22 109/70 94 06/05/18 19:15 82 18 06/05/18 16:00 98.7 F 80 20 110/66 92 06/05/18 13:10 80 20 06/05/18 12:00 99.1 F H 84 20 109/67 90 Intake and Output 06/05/18 06/06/18 06/06/18 21:59 05:59 13:59 Intake Total 200 / 200 100 / 100 Output Total 303 / 303 201 / 201 Balance -103 / -103 99 / 99 -201 / -201 Intake: Oral 200 / 200 100 / 100 Output: Void Amount 300 / 300 200 / 200 # of times incontinent of urine Other: # Voids 1 Weight 183 lb Medical - DS: Data Labs on day of discharge: Preliminary micro results at discharge 06/04/18 18:30 Blood Culture - Preliminary Blood 06/04/18 18:00 Blood Culture - Preliminary Blood 06/02/18 11:30 Blood Culture - Preliminary Blood 06/02/18 11:45 Blood Culture - Preliminary Blood Medical - DS: A/P - Patient/Caregiver Discharge Instructions Activity: ambulate only with your walker, as per physical therapy, increase activity as tolerated, wear oxygen at all times Diet: Regular Diet Additional Instructions: Ortho Discharge Instructions: Do the exercises at home that physical therapy gave you throughout the day. Weight bearing as tolerated. Wear comfortable clothing for physical therapy. You have Dermabond (a dressing with a mesh-like appearance), DO NOT remove mesh. Cover site daily with gauze dressing. You may start showering on post op day #2. The Dermabond dressing can get wet, do not scrub dressing. Pat dry, then place new dressing (above). To avoid constipation while taking any narcotic pain medication, take an over the counter stool softener/laxative. Use ice packs as directed, on for 20 minutes at a time throughout the day. This and elevation will help with pain and swelling. Call your physician for fevers above 100.5 or pain not controlled by medication. Your prescriptions are with your discharge information. Some medications were electronically transmitted to your pharmacy of choice. Take Aspirin twice daily, for 30 days, as prescribed to prevent blood clots ( see medication list). Prescriptions: Aspirin [Ecotrin] 325 mg PO BID #60 tab.ec HYDROcodone/APAP 10/325MG [[place] 10-325Mg] 1 - 2 tab PO Q4HP PRN #60 tab PRN Reason: Pain Level 3-6 - Problem Maintenance (1) Closed left hip fracture Status: Acute Qualifiers: Encounter type: subsequent encounter Fracture healing: with routine healing Qualified Code(s): S72.002D - Fracture of unspecified part of neck of left femur, subsequent encounter for closed fracture with routine healing (2) Aspiration pneumonia of both lower lobes Status: Acute Qualifiers: Aspiration pneumonia type: due to regurgitated food Qualified Code(s): J69.0 - Pneumonitis due to inhalation of food and vomit (3) Parkinson's disease, Lewy body Status: Acute Comment: 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 not confirmable till autopsy limited options for treatment (4) Relapsing fever Status: Acute Comment: aspiration attributed but cycled fevers for 1 week which is unusual. suspect viral etiology but resp panel not pursued as it does not change treatment plan at this time influenza negative - Follow up Plan Follow up with: Fallon Benavidez MD [Primary Care Provider] - Edith Lyles PA-C [Physician Biomedical Scientist] - 06/15/18 10:20 am Disposition: [facility] Prognosis: Fair Rehab Potential: Fair I certify that the patient requires SNF services: Yes Overall status at discharge: patient is not back to baseline (weak and new hip fracture plus febrile illness and progressive underlying disease (CBD)) Medical - DS: Qual - VTE Deep Vein Thrombosis/Pulmonary Embolism Present on Admission: No
== END 2018-06-06 14:59 | disposition other institution (70) | DRG 469 ==
LOC: ED 15:39 → MEDSUR 17:25
PROVIDERS: ADMIT Internal Medicine; ATTEND Internal Medicine
PROC: HEMIHIP (2018-05-31 10:54)